=== PATIENT | female | born 1930 | race Caucasian/White ===

== ENCOUNTER 2017-03-28 16:41 | Inpatient (IN) | payer MEDICARE, OTHER ==
--- NOTE | ~2017-03-28 | CN ---
Consultation Report [address] [place]. [address] NAME: TOBY STRANGE : [birth year] STATUS : ADM IN PAT#: [id number] AGE: 87 ADM/REG DATE : 03/28/17 MR#: [id number] REPORT SERV DATE: 03/31/17 DICTATED BY: LENNOX TERESA III DATE: 03/30/17 REPORT STATUS : Draft TRANSCRIBED BY: MODL DATE: 03/30/17 CONSULTATION DATE OF CONSULTATION: 03/30/2017 REASON FOR CONSULTATION: Thrombocytosis. HISTORY OF PRESENT ILLNESS: Ms. Strange is an 87-year-old female with atrial fibrillation, who was on Eliquis, who was admitted with a GI bleed on 03/28/2017. Upon admission, she was noted to have a platelet count of over 800,000. She is unaware of any prior elevated blood counts or other blood count abnormalities. She denies having any history of clotting events or myocardial infarction or CVA. She presently is very comfortable and has not had any further bowel movements since admission. PAST MEDICAL HISTORY: 1. Paroxysmal atrial fibrillation. 2. Hypertension. 3. Hyperlipidemia. 4. Depression with anxiety. 5. Arthritis. 6. Obesity. PAST SURGICAL HISTORY: Hysterectomy. SOCIAL HISTORY: Negative for any tobacco or alcohol or drug abuse. ALLERGIES: NO KNOWN DRUG ALLERGIES. FAMILY HISTORY: Significant for cancer, but there is no clotting history that she is aware of. MEDICATIONS: Her home medication list was reviewed and per the home med list. REVIEW OF SYSTEMS: A comprehensive review of systems was performed and is negative unless noted in the HPI. PHYSICAL EXAMINATION: VITAL SIGNS: Blood pressure is 138/63, temperature 97.6, and pulse is 62. GENERAL: She is a well-developed, overweight female, in no acute distress. EYES: Pupils are round and reactive to light with anicteric sclerae. NECK: Supple with no masses or thyroid enlargement. No JVD. CARDIOVASCULAR: Irregularly irregular with no peripheral edema. LUNGS: Clear to auscultation bilaterally with normal respiratory effort. ABDOMEN: Soft, nondistended, nontender with no hepatosplenomegaly to palpation or Consultation Report [place] [id number] [facility] [place]. [address] NAME: TOBY STRANGE : [birth year] STATUS : ADM IN PAT#: [id number] AGE: 87 ADM/REG DATE : 03/28/17 MR#: [id number] REPORT SERV DATE: 03/31/17 DICTATED BY: LENNOX TERESA III DATE: 03/30/17 REPORT STATUS : Draft TRANSCRIBED BY: PACO DATE: 03/30/17 percussion. SKIN: Warm and dry with good skin turgor. No jaundice. PSYCHIATRIC: She is alert and oriented, comprehends our conversation. Normal judgment and affect. LYMPHATIC: Exam is negative for any cervical, supraclavicular, or axillary lymphadenopathy. LABORATORY DATA: Her CBC since admission were reviewed and did show persistently elevated platelet count and mild leukocytosis. ASSESSMENT AND PLAN: Thrombocytosis with mild leukocytosis. It is possible that she has a chronic myeloproliferative disorder versus reactive blood counts or recurrent illness. We will hold off further hematology workup at this time. We will plan to see her at the end of the month as an outpatient to see if her blood counts have normalized. If she continues to have an elevated platelet count and white blood cell count, we will plan to send a molecular testing at that point. HAKEEM/PACO Lennox Teresa III, M.D. / [id number] CC: Chase Mosher MD
--- NOTE | ~2017-03-28 | IDS ---
Interim Discharge Summary [facility] [address] [place] [place]. [address] NAME: TOBY RENE : [birth year] STATUS : ADM IN [facility]#: [id number] AGE: 87 ADM/REG DATE : 03/28/17 MR#: [id number] REPORT SERV DATE: 04/03/17 DICTATED BY: KAJAL BARNES IV DATE: 04/03/17 REPORT STATUS : Draft TRANSCRIBED BY: MODAnabella DATE: 04/03/17 ADMISSION DATE: 03/28/2017 DISCHARGE DATE: DATE OF THE TRANSFER TO THE ICU: 04/01/2017. DATE OF TRANSFER TO THE FLOOR: 04/03/2017. ADMITTING DIAGNOSES: 1. Postoperative respiratory failure, resolved with the patient extubated on the and clinically doing well on several liters of supplemental oxygen. 2. Iatrogenic sigmoid perforation with closure. 3. Urinary tract infection with continued white blood cells, however, with repeat cultures having no-growth, previously with Klebsiella and Pseudomonas. 4. Acute kidney injury, resolved. 5. Paroxysmal atrial fibrillation without recurrence. 6. Hypertension with re-initiation of some of her medications. 7. Electrolyte abnormalities being corrected. CONSULTANTS: Critical Medicine was the new air quality consultant to assume primary care. After the patient was transferred to the ICU postoperatively, General Surgery had previously seen the patient and continues to follow the patient. PROCEDURES: The patient underwent the primary closure of the sigmoid colon perforation as noted. Prior to the transfer to the ICU, no new procedures were performed. Results of the patient's cardiac MRI demonstrated no atrial lesion. CURRENT MEDICATIONS: The patient is on Bactroban twice a day; Celexa 40 mg daily; Claritin 10 mg daily; Cozaar 50 mg daily; DuoNebs every four hours while awake and q.4 hours as needed; folic acid 1 mg daily; heparin 5000 units q.8 hours; hydrochlorothiazide 12.5 mg daily; Levaquin 750 mg daily, which will be continued for two more days; Mag-Ox 400 mg daily; melatonin 3 mg at bedtime; Norvasc 10 mg at bedtime; Protonix 40 mg IV daily; Toprol- XL 100 mg daily; multivitamin daily. HOSPITAL COURSE: The patient was admitted to the ICU following surgery for primary closure of the iatrogenic sigmoid perforation. The patient remained on the mechanical ventilator, though was easily weaned off the morning of 04/02. She has clinically done well with minimal supplemental oxygen needs. The Levaquin was continued both for the bowel perforation as well as the urinary tract infection, though she would only need two more days. She remained on Flagyl for this as well. Most of her blood pressure medications were held, those are being re-initiated as the blood pressure rises postsurgery. She had electrolyte abnormalities, which were corrected. She had a slight rise in her creatinine, which has improved. Hemoglobin has been stable, and she has not required transfusion. It was felt that she was stable for transfer to the floor with orders provided. We will ask the Hospitalist Service to resume primary responsibility. General Surgery will continue to follow. Interim Discharge Summary [address] [place]. [address] NAME: TOBY RENE : [birth year] STATUS : ADM IN [facility]#: [id number] AGE: 87 ADM/REG DATE : 03/28/17 MR#: [id number] REPORT SERV DATE: 04/03/17 DICTATED BY: KAJAL BARNES IV DATE: 04/03/17 REPORT STATUS : Draft TRANSCRIBED BY: PACO DATE: 04/03/17 BHUMI/PACO Kajal Barnes IV, M.D. / [id number] CC: Chase Alicea MD
--- NOTE | ~2017-03-28 | EGD ---
EGD REPORT [facility] [address] [address] NAME: PAM STRANGE : [birth year] STATUS : ADM IN PAT#: [id number] AGE: 87 ADM/REG DATE : 03/28/17 MR#: [id number] REPORT SERV DATE: 04/02/17 DICTATED BY: LOUISA LONG DATE: 04/02/17 REPORT STATUS : Draft TRANSCRIBED BY: [employer] DATE: 04/02/17 [facility] Patient Name: Pam Strange Date of : 1930 Attending MD: LOUISA LONG, Procedure Date No Time: 04/01/2017 Procedure: Colonoscopy Indications: Rectal bleeding Referring MD: TIFFANI DUNN Medicines: Propofol per Anesthesia Complications: Concern for Perforation given epiploica and mesentery. Procedure: Pre-Anesthesia Assessment: - ASA Grade Assessment: III - A patient with severe systemic disease. After I obtained informed consent, the scope was passed under direct vision. Throughout the procedure, the patient's blood pressure, pulse, and oxygen saturations were monitored continuously. The CF [id number] was introduced through the anus with the intention of advancing to the cecum. The scope was advanced to the sigmoid colon before the procedure was aborted. Medications were given. The colonoscopy was performed with ease. The patient tolerated the procedure poorly as appears to have perforation. Findings: The perianal exam was abnormal. Findings include a skin tag. Colonoscope was advanced with ease to 30cm from the anal verge and the colonic mucosa appeared normal up until it appeared that there was epiploica and mesentery. The colonoscope was immediately withdrawn and air removed as much as possible. Estimated blood loss: none. Impression: - Perianal skin tag found on perianal exam. Recommendation: - Perform a CT scan (computed tomography) of abdomen without contrast and pelvis without contrast STAT- discussed with radiologist on-call. - Consult surgeon for likely perforation- discussed with surgery on-call. - Hospitalized notified. Procedure Code(s): --- Professional --- 91194, 53, Colonoscopy, flexible, proximal to splenic flexure; diagnostic, with or without collection of specimen(s) by brushing or washing, with or without EGD REPORT [place] [address] [facility] [place]. [address] NAME: PAM STRANGE : [birth year] STATUS : ADM IN [facility]#: [id number] AGE: 87 ADM/REG DATE : 03/28/17 MR#: [id number] REPORT SERV DATE: 04/02/17 DICTATED BY: LOUISA LONG DATE: 04/02/17 REPORT STATUS : Draft TRANSCRIBED BY: [employer] DATE: 04/02/17 colon decompression (separate procedure) Diagnosis Code(s): --- Professional --- K64.4, Residual hemorrhoidal skin tags K62.5, Hemorrhage of anus and rectum K91.71, Accidental puncture and laceration of a digestive system organ or structure during a digestive system procedure CPT copyright 2013 [employer]. All rights reserved. The codes documented in this report are preliminary and upon melt supervisor review may be revised to meet current compliance requirements. LOUISA LONG, 04/01/2017 6:09 PM This report has been signed electronically. Number of Addenda: 0 Note Initiated On: 04/01/2017 4:50 PM Scope Withdrawal Time 0 hours 0 minutes 0 seconds [address] [place] [address]
--- NOTE | ~2017-03-28 | PUL ---
[place] [address] [place]. [address] NAME: TOBY RENE : [birth year] STATUS : ADM IN PAT#: [id number] AGE: 87 ADM/REG DATE : 03/28/17 MR#: [id number] REPORT SERV DATE: 03/31/17 DICTATED BY: OPHELIA ARCHIBALD DATE: 03/31/17 REPORT STATUS : Draft TRANSCRIBED BY: MODL DATE: 03/31/17 PULMONARY FUNCTION TEST TEST: Overnight pulse oximetry done on room air. DATA: Total recording time 5 hours 53 minutes, mean pulse 76, mean oxygen saturation 90.6. Time with an oxygen saturation less than 88% is 37 minutes and 52 seconds, 10.7% of the night. INTERPRETATION: This is an abnormal study with nocturnal hypoxia, SpO2 graph is concerning for sleep apnea events at 2300 hours. If there is a clinical concern of sleep apnea, we would recommend having an outpatient polysomnogram. Otherwise, this patient would most likely do well with 2 L nasal cannula oxygen supplementation for nocturnal hypoxia. HFQ/MODL Ophelia Archibald MD / [id number] CC: MD Vick Story MD
--- NOTE | ~2017-03-28 | IDS ---
Interim Discharge Summary [facility] [address] [place]. [address] NAME: TOBY RENE : [birth year] STATUS : ADM IN [facility]#: [id number] AGE: 87 ADM/REG DATE : 03/28/17 MR#: [id number] REPORT SERV DATE: 04/13/17 DICTATED BY: JANIE BOLAÑOS DATE: 04/13/17 REPORT STATUS : Draft TRANSCRIBED BY: MODL DATE: 04/13/17 ADMISSION DATE: 03/28/2017 DISCHARGE DATE: Date of service provided from 04/07/2017 to 04/13/2017. Please refer also to interim discharge summary dictated by Dr. Shepherd on 04/06/2017. CURRENT MEDICAL PROBLEMS: 1. Status post surgery on 04/01/2017 for iatrogenic sigmoid perforation from colonoscopy, status post emergent repair on 04/01/[address] Qamar Chandler. 2. Leukocytosis increasing during this week, improved on intravenous Zosyn. 3. Cough with sputum production. Bronchitis and also volume overload. Lasix periodically given. Picture of volume overload, interstitial edema on the CT of the chest. 4. Significant extensive atelectasis postsurgical, needs to optimize respiratory care and respiratory therapies. 5. Diastolic congestive heart failure. Interstitial edema. IV Lasix with the control of creatinine. Chronic kidney disease. Creatinine stable. 6. History of paroxysmal atrial fibrillation, currently in normal sinus rhythm. Eliquis currently on hold. Eliquis to be restarted possibly in a week if no bleeding any more. 7. On admission was admitted for lower gastrointestinal bleed. Colonoscope was stopped because of perforation, unclear etiology of blood, possible diverticulosis. 8. Anemia of chronic disease, stable hemoglobin and hematocrit. 9. Mild ascending thoracic aneurysm on the CT of the chest, asymptomatic. 10.Question when Eliquis should be restarted. Could be restarted at a lower dose in a week if tolerates. Unclear source of bleeding since colonoscopy was not performed. CONSULTANTS ON THE CASE: Bridge Rigger, Dr. Pierce and Dr. Thakur. Critical care Dr. Alan when the patient was in the ICU. Dr. Shepherd once the patient came to the floor on 04/06/2017, was attending until 04/06/2017. Dr. Qamar Chandler of surgery this week. For the week that I saw the patient, the patient was on the floor. She was complaining of some chest congestion and cough with yellowish sputum production. Although, the chest x-ray did not show any evidence of pneumonia, just atelectasis. She was afebrile. She was on 2 L of nasal cannula and her oxygenation was 97% to 95%. The patient was given periodically intravenous Lasix which was improving her congestion, and her creatinine was checked on a daily basis. Because her creatinine currently was fluctuating in the range of 1.1 to 1.15, there was a concern of increasing leukocytosis for the last three days. For example, on 04/09/2017, the white count was 11.8, on 04/11/2017 was 14.1, and on 04/12/2017 was 16.1. At this point, the white count was discussed with Surgery and there was also a question about her wound draining some fluid, so the CT of the abdomen and CT of the chest both without contrast because of the patient's chronic kidney disease and borderline creatinine, so CTs were done without contrast. CT of the chest showed subsegmental atelectasis on the posterior bilateral upper lobes and multi segment atelectasis, posterior bilateral lung bases with underlying small pleural effusion, diffuse pulmonary interstitial edema pattern which may be cardiogenic or noncardiogenic. Differential diagnosis includes interstitial pneumonitis, upper normal heart size and mild Interim Discharge Summary [address] [address] NAME: TOBY RENE : [birth year] STATUS : ADM IN [facility]#: [id number] AGE: 87 ADM/REG DATE : 03/28/17 MR#: [id number] REPORT SERV DATE: 04/13/17 DICTATED BY: JANIE BOLAÑOS DATE: 04/13/17 REPORT STATUS : Draft TRANSCRIBED BY: MODL DATE: 04/13/17 fusiform aneurysmal change on an ascending thoracic aorta of 3.3 cm, enlargement of pulmonary artery 3.4 cm consistent with evidence of pulmonary hypertension. CT of the abdomen and pelvis without contrast, although examination was limited by the lack of oral and IV contrast, no definitive abscess collection was identified, it showed mild diverticulosis in the sigmoid colon. No significant sigmoid wall thickening or surrounding inflammatory change. No anterior abdominal wall abscess. So, Dr. Chandler does not think that the patient has any intraabdominal pathology. He removed her suyapa and we started the patient on Zosyn since yesterday. Her white count came down to 63882o. I also gave her another dose of intravenous Lasix today and we will check her creatinine tomorrow. She will continue oral Lasix also, but we should check creatinine to make sure her kidney function is not worsening. I think that the patient will need two or three days of Zosyn and then probably she should be discharged to rehab on oral antibiotic and diuretic as well as we will optimize her physical therapy. Regarding the patient's Eliquis which she takes for atrial fibrillation, I told the patient's daughter that it is risk versus benefit. Right now, in the beginning of the week, she had one bloody bowel movement, but then she had two bowel movements, which did not show any evidence of blood. Surgeon recommended probably to restart Eliquis in the week, but we still do not know what was the source of her lower GI bleed, for which she was admitted because colonoscopy could not be finished, because of the perforation. So, we would recommend to restart Eliquis on the lower dose of 2.5 twice a day in a week and under control of hemoglobin, if there is any bleeding, it should be discontinued. This was explained to the patient's daughter and she needs to make a final decision. It is risk versus benefit on the Eliquis and the patient's daughter understand this. My partner, Dr. Victoria will see this patient starting tomorrow morning, and he will check on the white count, and if the patient needs more IV Lasix, we can order it and regarding Eliquis, once again the dose of which should be decreased to 2.5 mg p.o. b.i.d. My partner will see the patient starting tomorrow morning. MG/MODL Janie Bolaños M.D. / [id number] CC: Chase Brush MD
--- NOTE | ~2017-03-28 | HP ---
History And Physical [facility] [address] [place]. [address] NAME: TOBY RENE : [birth year] STATUS : ADM IN [facility]#: [id number] AGE: 87 ADM/REG DATE : 03/28/17 MR#: [id number] REPORT SERV DATE: 03/29/17 DICTATED BY: BRYANNA GUERRA DATE: 03/28/17 REPORT STATUS : Draft TRANSCRIBED BY: MODL DATE: 03/28/17 DATE OF ADMISSION: 03/28/2017 CHIEF COMPLAINT: Red blood per rectum starting today. HISTORY OF PRESENT ILLNESS: This is a very pleasant 87 years old female who has a past medical history significant for paroxysmal atrial fibrillation, history of hypertension, history of hyperlipidemia, obesity, degenerative joint disease, osteoarthritis, chronic kidney disease presenting today to [facility] with complaints of GI bleed starting today. The patient says that for one week or so has been complaining of constipation and she started to take by herself some milk of magnesia. Early this morning, she took milk of magnesia, and after that, she started to have a bowel movement and then she started to have 3 episodes of red blood per rectum as well as abdominal discomfort. It is important to note that the patient did not have any nausea or vomiting. No hematemesis, no melena. She has been scoped more than 10 years ago, but she does not remember the results of her EGD and colonoscopy according to the patient, but no scope recently. She is on Eliquis as well as aspirin that she is taking for her paroxysmal atrial fibrillation. She did not have any presyncopal or syncopal episodes. No chest pain or increasing shortness of breath. No PND or orthopnea. No other complaints. The patient has been evaluated in the emergency room and Hospitalist Service has been asked for admission, further evaluation, and treatment. PAST MEDICAL HISTORY: Significant for paroxysmal atrial fibrillation, history of hypertension, hyperlipidemia, depression with anxiety, degenerative joint disease, osteoarthritis, and obesity. PAST SURGICAL HISTORY: Hysterectomy. SOCIAL HISTORY: Denies tobacco, alcohol, or IV drugs. ALLERGIES: SHE DOES NOT HAVE ANY DRUG ALLERGIES. FAMILY HISTORY: Significant for cancer. MEDICATIONS: Listed as her home medications include Eliquis, aspirin, Lipitor, Celexa, Cartia, Francie, Lasix, Cozaar, mag oxide, Toprol-XL, and sinus pills. REVIEW OF SYSTEMS: A 14-point review of systems has been obtained and pertinent positive has been listed into the history of present illness. Otherwise, negative except those underlying above. PHYSICAL EXAMINATION: VITAL SIGNS: The patient is afebrile. Blood pressure 177/58 with a heart rate 91 lying down, standing blood pressure 141/62, heart rate 89, respiratory rate 20, and saturating 92% on room air. GENERAL: She is a very pleasant, well-developed, well-nourished female, in no acute distress. She is alert and oriented x3. She is nonfocal. She follows all her commands History And Physical [address] [address] NAME: TOBY RENE : [birth year] STATUS : ADM IN [facility]#: [id number] AGE: 87 ADM/REG DATE : 03/28/17 MR#: [id number] REPORT SERV DATE: 03/29/17 DICTATED BY: BRYANNA GUERRA DATE: 03/28/17 REPORT STATUS : Draft TRANSCRIBED BY: PACO DATE: 03/28/17 appropriately. HEENT: Shows pupils equal, round, reactive to light. Extraocular movements intact. No JVD. No lymphadenopathy. No thyromegaly appreciated. CHEST: Eval shows bilateral air entry. Clear anteroposterior. No wheezes, crackles, or rhonchi appreciated. CARDIOVASCULAR: She is regular rate and rhythm. S1, S2 positive. No S3, no S4. No murmurs, rubs, or gallops appreciated. ABDOMEN: Soft, obese, nontender. No guarding. No rebound. EXTREMITIES: No clubbing, cyanosis, or edema. NEUROLOGY: The patient is alert and oriented x3. She is nonfocal. She follows all her commands appropriately. LABORATORY DATA: Labs from today include sodium 137, potassium 4.7, chloride 100, CO2 of 30, BUN 32, creatinine 1.33, glucose 131, total protein 8.7, albumin 4.2, globulin 4.5, total bilirubin 0.4, alkaline phosphatase 127, ALT 36, AST 27. White count 12.9, hemoglobin 14.2, hematocrit 44.2, and platelets 855. INR is 1.3. CT of the abdomen and pelvis without contrast performed in the emergency room shows no acute abdominal or pelvic pathology. Mild diverticulosis, but no diverticulitis, colitis, or proctitis. There is hepatic steatosis and a small cyst on the left kidney. ASSESSMENT: This is a very pleasant 87 years old female with. 1. Lower gastrointestinal bleed. 2. History of paroxysmal atrial fibrillation, on anticoagulation. 3. Hypertension. 4. Hyperlipidemia. 5. Depression. 6. Mild chronic kidney disease. 7. Thrombocytopenia. PLAN: 1. The patient is going to be admitted to Hospitalist Service. Place her on IV fluids, Protonix IV b.i.d. We are going to perform H and H q.6 hours. Check all anemia studies. Hold the aspirin and Eliquis, and consult Dr. Goff, GI, for further recommendation. We are going to keep the patient n.p.o. past midnight pending GI evaluation. 2. History of paroxysmal atrial fibrillation. We are going to hold Eliquis. We are going to check a set of cardiac enzymes. Continue her Cardizem as well as her beta-marshall. 3. History of hypertension. We will continue her home medication. We are going to hold Cozaar currently, provide p.r.n. hydralazine as needed. 4. Mild chronic kidney disease, provide IV hydration, and follow the kidney function tests closely. 5. Hyperlipidemia. We will continue her home medications. 6. Thrombocytopenia, possible reactive. We are going to follow the labs. The patient might need on-call hematology followup as an outpatient. We will provide reasonable pain, nausea control as well as GI and DVT prophylaxis with SCDs. That has been discussed extensively with the patient and family. All the questions have been answered in full. Further workup and recommendation pending above. History And Physical [address] [address] NAME: TOBY RENE : [birth year] STATUS : ADM IN [facility]#: [id number] AGE: 87 ADM/REG DATE : 03/28/17 MR#: [id number] REPORT SERV DATE: 03/29/17 DICTATED BY: BRYANNA GUERRA DATE: 03/28/17 REPORT STATUS : Draft TRANSCRIBED BY: PACO DATE: 03/28/17 It is worthwhile to note that the patient is going to be followed by Hospitalist Service. MILE/PACO Bryanna Guerra M.D. / [id number] CC: MD Vick Saha MD
--- NOTE | ~2017-03-28 | CN ---
Consultation Report [facility] [address] [place]. [address] NAME: TOBY RENE : [birth year] STATUS : ADM IN [facility]#: [id number] AGE: 87 ADM/REG DATE : 03/28/17 MR#: [id number] REPORT SERV DATE: 03/30/17 DICTATED BY: SHERI WIN DATE: 03/29/17 REPORT STATUS : Draft TRANSCRIBED BY: MODAnabella DATE: 03/29/17 CONSULTATION REPORT DATE OF CONSULTATION: 03/29/2017 This consultation is for Dr. Shane Goff and I am covering for him. HISTORY OF PRESENT ILLNESS: The patient is an 87-year-old woman who has a history of atrial fibrillation, currently on Eliquis, presented with bright red blood from the rectum. She says that she has been having some constipation, yesterday took some milk of magnesia and then had some bright red blood, it was not a whole lot, but it did scare enough to come to the emergency room. She has also had some abdominal pains on the left side of the abdomen. She denies any melena. She denies any nausea or vomiting. No hematemesis or coffee-grounds emesis. No pyrosis. No indigestion. No dysphagia. No odynophagia. PAST MEDICAL HISTORY: Her past medical history is pertinent for the atrial fibrillation, hypertension, hyperlipidemia, degenerative joint disease, osteoarthritis, depression and anxiety, and obesity. She is status post a hysterectomy. MEDICATIONS: Her medicines at home are the Eliquis, aspirin, Lipitor, Celexa, diltiazem, Francie, Lasix, Cozaar, magnesium oxide, Toprol-XL, and sinus pill. ALLERGIES: SHE HAS NO KNOWN MEDICAL ALLERGIES. SOCIAL HISTORY: She does not smoke cigarettes and does not drink any alcohol. FAMILY HISTORY: Negative for colon cancer or colon polyps. REVIEW OF SYSTEMS: Otherwise, unremarkable. PHYSICAL EXAMINATION: GENERAL: She is a well-developed, well-nourished woman, in no acute distress. VITAL SIGNS: Her temperature is 96.8, pulse 71, respirations 20, and blood pressure is 171/74. HEENT: Unremarkable. LUNGS: Clear. HEART: Showed regular rate and rhythm. ABDOMEN: Showed normoactive bowel sounds and soft with mild tenderness in the left upper quadrant to left lower quadrant. LABORATORY DATA: On admission showed a sodium of 137, potassium 4.7, chloride 100, CO2 of 30, BUN 32, and creatinine 1.33. Her GFR was 36. Glucose 131, calcium was 9.6, total protein 8.7, albumin is 4.2, total bilirubin 0.4, alkaline phosphatase of 127, ALT 36, and AST 27. Her white count on admission was 12.9, hemoglobin 14.2, and platelet count a Consultation Report [address] [place]. [address] NAME: TOBY RENE : [birth year] STATUS : ADM IN PAT#: [id number] AGE: 87 ADM/REG DATE : 03/28/17 MR#: [id number] REPORT SERV DATE: 03/30/17 DICTATED BY: SHERI WIN DATE: 03/29/17 REPORT STATUS : Draft TRANSCRIBED BY: PACO DATE: 03/29/17 855,000. She had a PTT of 48 and a pro-time of 16.1 with an INR of 1.3. She had a CT scan, which was unremarkable. Currently, her electrolytes are sodium of 137, potassium 4.6, chloride 106, CO2 of 28, BUN 25, and creatinine 1.1. Her glucose is 112. Her GFR is 45. The calcium is 8.6, magnesium 2.5. Iron 73, TIBC 282, and ferritin was 138, all normal. Her hemoglobin is 13.6 with hematocrit of 42.6. IMPRESSION: This is an 87-year-old woman who presented with some bright red blood from the rectum. More than likely, this could be hemorrhoids as she is on Eliquis and the bleeding could be more than would be expected if she was not on blood thinners; however, with the abdominal pains, could also be ischemic colitis, could be diverticulosis, although with diverticulosis, you would expect her bleeding to be more and her hemoglobin and hematocrit to drop as they are currently stable. She did take her last Eliquis yesterday in the morning, so according to the antithrombotic reversal and surgical management recommendations for Eliquis is to hold it for at least 48 hours, maybe even three days for renal insufficiency so that she could have the procedure would be Thursday or Thursday. We will leave the actual timing to Dr. Thakur. JUDY/PACO Sheri Win M.D. / [id number] CC: Chase Garcia MD Camille Sommer, MD
--- NOTE | ~2017-03-28 | DS ---
Discharge Summary [place] [id number] [facility] [place]. [address] NAME: TOBY STRANGE : [birth year] STATUS : DIS IN PAT#: [id number] AGE: 87 ADM/REG DATE : 03/28/17 MR#: [id number] REPORT SERV DATE: 04/15/17 DICTATED BY: NICO ROLLE DATE: 04/14/17 REPORT STATUS : Draft TRANSCRIBED BY: MODL DATE: 04/14/17 ADMISSION DATE: 03/28/2017 DISCHARGE DATE: 04/14/2017 DISCHARGE DIAGNOSES: 1. Iatrogenic sigmoid perforation from colonoscopy with emergent repair on 04/01/[address] Qamar Chandler. 2. Leukocytosis. 3. Cough with sputum production, bronchitis. 4. Atelectasis postop. 5. Diastolic heart failure. 6. History of paroxysmal atrial fibrillation, Eliquis on held to be reassessed in one week, possible restart at half dose pending followup CBC. Family and patient aware. 7. Anemia of chronic disease. 8. Ascending thoracic aneurysm, asymptomatic, mild. CONSULTATIONS: 1. Dr. Pierce and Leonor Thakur MD. 2. Critical care by Dr. Marito Alan. 3. Hospitalist course by Dr. Shepherd and Dr. Obdulia Perez, up until 04/13/2017, seen by this physician on 04/14/2017. DISCHARGE MEDICATIONS: Amlodipine 10 mg one tab p.o. daily; atorvastatin 20 mg one tab p.o. at bedtime; Celexa 40 mg tab p.o. daily; Cardizem 240 mg one tab p.o. daily; folic acid 1 tab 1 mg p.o. daily; Lasix 20 mg one tab p.o. daily. Eliquis to follow up in one week, suggest restart at 2.5 mg p.o. b.i.d. Follow up in facility. Sliding scale insulin level 2. Claritin 10 mg one tab p.o. daily. Mag oxide 400 mg one tab p.o. daily. Melatonin 3 mg one tab p.o. at bedtime. Daily multivitamin; metoprolol 100 mg one tab p.o. XL; Protonix 40 mg one tab p.o. before breakfast; MiraLAX 1 packet p.o. daily; hydralazine 25 mg one tab p.o. q.8 hours; Tylenol over the counter for fever over 101 per coating mixer tender's directions; glucose tablets per hyperglycemia protocol; Chase 5/325 q.6 hours as needed for breakthrough pain; Zofran 4 mg ODT q.4 for nausea vomiting; aspirin 81 mg, also follow up in one week; Michelle connell currently, follow up with PCP. HOSPITAL COURSE: Please see H and P for complete details of HPI and interim summaries and courses as noted by Dr. Shepherd and Dr. Perez written on 04/13/2017. Briefly, Ms. Strange is a very pleasant, female, who was admitted after having emergent surgery for bowel perforation, did have ICU requirements for postop respiratory failure, resolved with extubation on the , did have UTI that was no growth, previously had Klebsiella and Pseudomonas cultures but was able to be transferred out of ICU. The patient also had a lower GI bleed as she was also on Eliquis which is currently on hold, will be reassessed one week from discharge for paroxysmal atrial fibrillation. I anticipate reduced dose. The patient was noted to have thrombocytosis, also evaluated by Hematology Oncology, an echocardiogram with resultant cardiac MRI for questionable arterial mass which was negative on cardiac MRI but was incidentally noted on echocardiogram but not able to be confirmed on cardiac MRI. The patient was noted to have mild hypoxia which improved with IV Lasix and Discharge Summary [address] [address] NAME: TOBY STRANGE : [birth year] STATUS : DIS IN PAT#: [id number] AGE: 87 ADM/REG DATE : 03/28/17 MR#: [id number] REPORT SERV DATE: 04/15/17 DICTATED BY: NICO ROLLE DATE: 04/14/17 REPORT STATUS : Draft TRANSCRIBED BY: MODL DATE: 04/14/17 supplemental O2, was placed on IV antibiotics. However, clinically did not have infectious type pattern and did appear to have more atelectatic type component, was removed from IV antibiotics. The patient did have culture obtained from Dr. Chandler who also did not believe infectious source from abdominal wall, although no significant atelectatic type component and stress demargination for leukocytosis. The patient felt notably improved per family, also felt more comfortable and encouraged the progress. Both the patient and family understood, they had very appropriate questions during hospital stay and very informed about hospital stay and eager for discharge on day of discharge to skilled facility to continue her rehabilitation course. The patient was continued with ICS, to have followup labs in approximately one week with CBC, BMP, and then reassessment with the same for Eliquis restart. All questions answered to patient and family at bedside. DICTATED BY: Nico Rolle MD DDJose Eduardo/MODL Nico Rolle MD / [id number] CC: MD Vick Jenkins MD
--- NOTE | ~2017-03-28 | CN ---
Consultation Report [facility] [address] [place]. [address] NAME: TOBY RENE : [birth year] STATUS : ADM IN [facility]#: [id number] AGE: 87 ADM/REG DATE : 03/28/17 MR#: [id number] REPORT SERV DATE: 04/03/17 DICTATED BY: SHERI ALAN DATE: 04/01/17 REPORT STATUS : Draft TRANSCRIBED BY: MODL DATE: 04/01/17 CONSULTATION TIME IS 2130 HOURS, SEEN IN CCU, PATIENT IS POSTOP. DATE OF CONSULTATION: 04/01/2017 HISTORY OF PRESENT ILLNESS: An 87-year-old white female with history of atrial fibrillation, paroxysmal; hypertension; hyperlipidemia; obesity; DJD; osteoarthritis; and chronic kidney disease. She presents to the hospital with complaints of GI bleeding, starting with some bloody bowel movements. She says she has had constipation for the past week and is taking laxatives. She did have some abdominal discomfort and has had blood per rectum. This led to her coming to the hospital and undergoing colonoscopy where she sustained a perforation, taken to the operating room for ex lap and a repair, still in the ICU. The patient is sedated on mechanical ventilation. PAST MEDICAL HISTORY: Significant for PAF, history of hypertension, hyperlipidemia, history of depression and anxiety, DJD, osteoarthritis, obesity. She is status post hysterectomy. No tobacco, alcohol, or drug use. ALLERGIES: NO KNOWN ALLERGIES. FAMILY HISTORY: Significant for cancer. REVIEW OF SYSTEMS: Otherwise negative, noncontributory, except for as noted above. PHYSICAL EXAMINATION: GENERAL: Currently, on examination, she is orally intubated. Obese female in no acute distress. Vital signs are stable. She is afebrile. HEENT: Head is normocephalic. Sclerae and conjunctivae are clear. CHEST: Bilateral expiratory wheezes. CARDIAC: S1 and S2. No murmurs or gallops. ABDOMEN: Soft, what appears to incision in place. EXTREMITIES: No clubbing, cyanosis, or edema. Pulses are palpable. NEUROLOGIC: Grossly intact. LABORATORY DATA: Blood cultures negative thus far. Her sodium today is 136, potassium 4.3, chloride 103, CO2 of 29, BUN 21, creatinine 1.17, glucose 103, calcium 8.2. CBC shows an H and H of 11.6, 35.9. White count 8800, platelet count 715,000, 76 polys, 1 band. Urine culture, Klebsiella greater than 100,000, sensitive. H and H of of 11.1 and 33.9. Colonoscopy report including skin tag, normal. Splenic flexure, residual hemorrhoidal skin tags. Abnormal CT noted. Chest x-ray shows pending. Consultation Report [place] [address] [place]. [address] NAME: TOBY RENE : [birth year] STATUS : ADM IN PAT#: [id number] AGE: 87 ADM/REG DATE : 03/28/17 MR#: [id number] REPORT SERV DATE: 04/03/17 DICTATED BY: SHERI ALAN DATE: 04/01/17 REPORT STATUS : Draft TRANSCRIBED BY: PACO DATE: 04/01/17 IMPRESSION: 1. Postop for perforation of bowel. 2. Status post exploratory laparoscopy. 3. History of paroxysmal atrial fibrillation. 4. History of hypertension, hyperlipidemia, and depression. Home meds are listed as noted including Eliquis, aspirin, Lipitor, Celexa, Cartia, Francie, Lasix, Cozaar, Mag Ox, Toprol-XL, . REVIEW OF SYSTEMS: Otherwise negative and noncontributory. Currently, the patient is orally intubated, stays on mechanical ventilation. 135/94, pulse 62 and regular, afebrile, sat 90%. HEENT: Head is normocephalic. Orally intubated. NECK: Large. No thyromegaly. CHEST: Bilateral expiratory wheezes. CARDIAC: S1 and S2. No murmurs or gallops. ABDOMEN: Soft, nontender. Dressing seen. Decreased bowel sounds. EXTREMITIES: No clubbing, cyanosis, or edema. Pulses palpable. NEUROLOGIC: She is sedated. Recovered per anesthesia. Laboratory studies are as noted. PLAN: Status post perforation. Continue to observe. Continue surgical orders. She is currently on Levaquin and Flagyl. Monitor ventilator, attempt to wean in the morning. DENISE/PACO Sheri Alan M.D. / [id number] CC: Vaughn Shepherd MD
--- NOTE | ~2017-03-28 | EGD ---
EGD REPORT [facility] [address] [address] NAME: PAM STRANGE : [birth year] STATUS : ADM IN PAT#: [id number] AGE: 87 ADM/REG DATE : 03/28/17 MR#: [id number] REPORT SERV DATE: 04/01/17 DICTATED BY: LOUISA LONG DATE: 04/01/17 REPORT STATUS : Draft TRANSCRIBED BY: [employer] DATE: 04/01/17 Endoscopy Center Patient Name: Pam Strange Date of : 1930 Attending MD: LOUISA LONG, Procedure Date No Time: 04/01/2017 Procedure: Colonoscopy Indications: Rectal bleeding Referring MD: TIFFANI DUNN Medicines: Propofol per Anesthesia Complications: Concern for Perforation given epiploica and mesentery. Procedure: Pre-Anesthesia Assessment: - ASA Grade Assessment: III - A patient with severe systemic disease. After I obtained informed consent, the scope was passed under direct vision. Throughout the procedure, the patient's blood pressure, pulse, and oxygen saturations were monitored continuously. The CF [id number] was introduced through the anus with the intention of advancing to the cecum. The scope was advanced to the sigmoid colon before the procedure was aborted. Medications were given. The colonoscopy was performed with ease. The patient tolerated the procedure poorly as appears to have perforation. Findings: The perianal exam was abnormal. Findings include a skin tag. Colonoscope was advanced with ease to 30cm from the anal verge and the colonic mucosa appeared normal up until it appeared that there was epiploica and mesentery. The colonoscope was immediately withdrawn and air removed as much as possible. Estimated blood loss: none. Impression: - Perianal skin tag found on perianal exam. Recommendation: - Perform a CT scan (computed tomography) of abdomen without contrast and pelvis without contrast STAT- discussed with radiologist on-call. - Consult surgeon for likely perforation- discussed with surgery on-call. - Hospitalized notified. Procedure Code(s): --- Professional --- 33610, 53, Colonoscopy, flexible, proximal to splenic flexure; diagnostic, with or without collection of specimen(s) by brushing or washing, with or without EGD REPORT [place] [address] [facility] [place]. [address] NAME: PAM STRANGE : [birth year] STATUS : ADM IN [facility]#: [id number] AGE: 87 ADM/REG DATE : 03/28/17 MR#: [id number] REPORT SERV DATE: 04/01/17 DICTATED BY: LOUISA LONG DATE: 04/01/17 REPORT STATUS : Draft TRANSCRIBED BY: [employer] DATE: 04/01/17 colon decompression (separate procedure) Diagnosis Code(s): --- Professional --- K64.4, Residual hemorrhoidal skin tags K62.5, Hemorrhage of anus and rectum K91.71, Accidental puncture and laceration of a digestive system organ or structure during a digestive system procedure CPT copyright 2013 [employer] [place] [employer]. All rights reserved. The codes documented in this report are preliminary and upon termination clerk review may be revised to meet current compliance requirements. LOUISA LONG, 04/01/2017 6:09 PM This report has been signed electronically. Number of Addenda: 0 Note Initiated On: 04/01/2017 4:50 PM Scope Withdrawal Time 0 hours 0 minutes 0 seconds [address] [place] [address]
--- NOTE | ~2017-03-28 | OP ---
Record Of Operation [facility] [address] [place]. [address] NAME: TOBY RENE : [birth year] STATUS : ADM IN [facility]#: [id number] AGE: 87 ADM/REG DATE : 03/28/17 MR#: [id number] REPORT SERV DATE: 04/02/17 DICTATED BY: THOM GALEAS DATE: 04/01/17 REPORT STATUS : Draft TRANSCRIBED BY: MODL DATE: 04/01/17 DATE OF PROCEDURE: 04/01/2017 PREOPERATIVE DIAGNOSIS: Perforated colon. POSTOPERATIVE DIAGNOSIS: Perforated colon. PROCEDURE PERFORMED: 1. Exploratory laparotomy. 2. Primary of sigmoid colotomy. SURGEON: Dr. Thom Galeas. FELLOW: Dr. Vivek James. ANESTHESIA: General endotracheal tube anesthesia. IV FLUIDS: 1200. ESTIMATED BLOOD LOSS: 5 mL. SPECIMENS AND CULTURES: None. DRAINS: None. COMPLICATIONS: None. SURGICAL FINDINGS: A 1 cm defect in the antimesenteric wall of the mid sigmoid colon. This was repaired primarily in 2 layers. INDICATIONS FOR PROCEDURE: This is an 87-year-old female, who presented with rectal bleeding, underwent colonoscopy today. Unfortunately, she presented with perforation post colonoscopy and surgical consultation was sought. She was offered exploratory laparotomy repair and possible resection of the defect. Risks, benefits, and alternatives were explained to the patient, who understood these and consented to undergo surgical intervention. DESCRIPTION OF PROCEDURE: The patient was brought to the operating room, placed in the supine position where general anesthetic was induced. Central line and arterial line were in place. Preprocedure antibiotics were administered. SCDs were placed and turned on. Acosta catheter was placed sterilely. Preprocedure time-out was called and agreed upon. She was secured to the bed with arms out. The patient's abdomen was prepped and draped sterilely. Scalpel was used to make an infraumbilical midline incision from the umbilicus to just above the pubic symphysis. Electrocautery was used to dissect down to the fascia, which was grasped between two clamps and divided sharply with Metzenbaum scissors. Entry to the abdomen revealed large amount of air, which was suctioned away. The remainder of the Record Of Operation [facility] [address] [place]. [address] NAME: TOBY RENE : [birth year] STATUS : ADM IN PAT#: [id number] AGE: 87 ADM/REG DATE : 03/28/17 MR#: [id number] REPORT SERV DATE: 04/02/17 DICTATED BY: THOM GALEAS DATE: 04/01/17 REPORT STATUS : Draft TRANSCRIBED BY: MODL DATE: 04/01/17 fascia was opened using electrocautery along the linea alba and through the midline muscle defect inferiorly. On initial entry of the abdomen, there was no contamination identified and routine section in all four quadrants yielded very little fluid or particular matter. There was no stool or blood. We then elevated the sigmoid colon and looked along its length and roughly at the mid sigmoid colon, there was a 1 cm defect of the mucosa on the antimesenteric side of the colon wall. This was closed primarily in two layers using a 3-0 Vicryl running to reapproximate mucosa and 3-0 silks interrupted to cover. There was a small epiploic appendage, which was secured into place over the repair as well. We then irrigated the patient's abdomen with 3-4 L of sterile saline. The patient tolerated the procedure well. The midline fascia was closed using 5-0 Vicryl internal retention sutures as well as #1 PDS suture. The posterior sheath prior to that had been closed with an 0 Vicryl. Skin was reapproximated using a skin stapler. The patient was transferred to the CCU for ongoing critical care. Dr. Thom Galeas was present for the duration of the procedure. DICTATED BY: Vivek James MD [facility]/PACO Thom Galeas M.D. / [id number] CC: Vaughn Shepherd MD
--- NOTE | ~2017-03-28 | IDS ---
Interim Discharge Summary [facility] [address] [place]. [address] NAME: TOBY RENE : [birth year] STATUS : ADM IN [facility]#: [id number] AGE: 87 ADM/REG DATE : 03/28/17 MR#: [id number] REPORT SERV DATE: 04/06/17 DICTATED BY: VAUGHN SMITH DATE: 04/06/17 REPORT STATUS : Draft TRANSCRIBED BY: MODL DATE: 04/06/17 ADMISSION DATE: 03/28/2017 DISCHARGE DATE: WORKING DIAGNOSES: 1. Iatrogenic sigmoid perforation from a colonoscopy, status post emergent repair, postop day #5. 2. Postoperative respiratory failure, on 3 L of oxygen currently. 3. Initial admission for lower gastrointestinal bleed, the patient's hemoglobin has been stable. 4. Paroxysmal atrial fibrillation for which patient has been on Eliquis. 5. Anxiety. 6. Hypertension. 7. Thrombocytosis. 8. Chronic kidney disease. 9. Nocturnal hypoxia. 10.Urinary tract infection, repeat urine cultures are negative, but the patient has grown Klebsiella and Pseudomonas from earlier cultures. 11.The patient had an echocardiogram concerning for possible atrial mass. Cardiac MRI ruled out cardiac mass and the patient actually had very good viable myocardium, and overall excellent heart function. CONSULTANTS: 1. GI. 2. General Surgery. 3. Critical care for her time in the ICU. 4. Heme-Onc. PROCEDURES: 1. Colonoscopy performed on 04/01/2017 that resulted in iatrogenic sigmoid bowel perforation. 2. Emergent ex-lap with repair of the perforation by Dr. Chandler on 04/01/2017. HOSPITAL COURSE: This is an 87-year-old lady who was initially admitted to the hospital with lower GI bleed in the setting of anticoagulation with Eliquis. For details, please refer to excellent H and P dictated by Dr. Bryanna Delvalle. In summary, the patient underwent a colonoscopy on 04/01/2017, and unfortunately, the patient suffered from iatrogenic bowel perforation. The patient underwent emergent ex-lap and stayed in the ICU postop. For details, please refer to interim discharge summary dictated by Dr. Barnes. I resumed care of this patient after she came out of the ICU. The patient has remained quite stable since then. The patient does have history of paroxysmal atrial fibrillation, and her heart rate was suboptimally controlled with NG tube in; however, patient's heart rate is improving with her home p.o. medications since the NG tube has been discontinued. Earlier during the hospital stay, the patient was evaluated for thrombocytosis by Heme-Onc, and there was no indication for treatment for now. Heme-Onc will simply follow patient as Interim Discharge Summary [place] [address] [place]. [address] NAME: TOBY RENE : [birth year] STATUS : ADM IN PAT#: [id number] AGE: 87 ADM/REG DATE : 03/28/17 MR#: [id number] REPORT SERV DATE: 04/06/17 DICTATED BY: VAUGHN SMITH DATE: 04/06/17 REPORT STATUS : Draft TRANSCRIBED BY: MODL DATE: 04/06/17 an outpatient. Also during earlier in the hospital stay, patient had an echocardiogram that showed a possible atrial mass, the patient thus had a cardiac MRI which was within normal limits and it did not show any cardiac mass. Also during earlier part of the hospital stay, the patient was evaluated for nocturnal hypoxia, and she did test positive, and she is recommended to have oxygen 2 L nightly. The patient was seen by Physical therapy who recommended rehab at discharge. Currently, the patient is moving in the right direction. The patient will need to be cleared by surgery prior to discharge. The patient is passing gas but has not had any bowel movements yet. The patient has been tolerating clear liquid diet thus far. YSC/PACO Vaughn Smith MD / [id number] CC: MD Vick Story MD
[2017-03-28 17:05] LABS: BASOPHILS 0.5 %; BASOPHILS ABSOLUTE 0.06 10/3/uL (0.0-0.16); EOSINOPHILS 1.4 %; EOSINOPHILS ABSOLUTE 0.18 10/3/uL (0.0-0.53); HEMATOCRIT 44.2 % (36.0-48.0); HEMOGLOBIN 14.2 g/dL (12.0-16.0); IMMATURE GRANULOCYTES 0.5 %; IMMATURE GRANULOCYTES ABSOLUTE 0.07 10/3/uL (0.0-0.11); LYMPHOCYTES 25.7 %; LYMPHOCYTES ABSOLUTE 3.32 10/3/uL (0.67-4.30); MEAN CORPUS HGB CONC 32.1 g/dL (32.0-36.0); MEAN CORPUSCULAR HEMOGLOB 29.3 pg (26.0-34.0); MEAN CORPUSCULAR VOLUME 91.3 fL (80-100); MEAN PLATELET VOLUME 9.5 fL (9.2-13.0); MONOCYTES 7.3 %; MONOCYTES ABSOLUTE 0.94 10/3/uL (0.21-1.20); NEUTROPHILS 64.6 %; NEUTROPHILS ABSOLUTE 8.33 10/3/uL (2.02-8.40); RBC DISTRIBUTION WIDTH 15.3 % (12.0-16.0); RED CELL COUNT 4.84 10/6/uL (4.0-5.6); WHITE BLOOD CELLS 12.9 10/3/uL (4.5-10.5)
[2017-03-28 17:06] LABS: PLATELET COUNT 855 10/3/uL (150-400)
[2017-03-28 17:10] LABS: MANUAL DIFF NO %
[2017-03-28 17:17] LABS: INTERNATIONAL NORMAL RATI 1.3 UNITS (-); PROTIME (NOT ORD) 16.1 SEC (12.0-14.5)
[2017-03-28 17:21] LABS: A/G RATIO 0.9 (0.7-1.9); ALBUMIN 4.2 G/DL (3.5-5.0); ALKALINE PHOSPHATASE 127 U/L (45-117); BUN (BLOOD UREA NITROGEN) 32 MG/DL (6-23); CALCIUM, SERUM 9.6 MG/DL (8.5-10.4); CHLORIDE, SERUM 100 MMOL/L (96-112); CO2 (CARBON DIOXIDE) 30 MMOL/L (24-34); CREATININE 1.33 MG/DL (0.55-1.02); GFR AFRICAN AMERICAN 41 ML/MIN (>=60); GFR NON AFRICAN AMERICAN 36 ML/MIN (>=60); GLOBULIN 4.5 G/DL (2.5-4.1); GLUCOSE, SERUM 131 MG/DL (60-99); POTASSIUM, SERUM 4.7 MMOL/L (3.5-5.3); SGOT(AST) 27 U/L (5-40); SGPT(ALT) 36 U/L (5-65); SODIUM, SERUM 137 MMOL/L (135-148); TOTAL BILIRUBIN 0.4 MG/DL (0-1.2); TOTAL PROTEIN 8.7 G/DL (6.0-8.5)
[2017-03-28 17:52] LABS: RBC MORPHOLOGY NORM (NORMAL)
[2017-03-28] MEDS ORDERED: CELEXA20 PO (18:59)
[2017-03-28] MEDS ORDERED: MAG OXIDE250 MG PO (18:59)
[2017-03-28] MEDS ORDERED: ASAB PO (18:59)
[2017-03-28] MEDS ORDERED: COZAAR100 MG PO (18:59)
[2017-03-28] MEDS ORDERED: TOPXL100 PO (19:00)
[2017-03-28] MEDS ORDERED: LIPITOR20 PO (19:03)
[2017-03-28] MEDS ORDERED: CARTIA XT120 MG/24 PO (19:03)
[2017-03-28] MEDS ORDERED: ELIQUIS 5 MG TAB5 MG PO (19:04)
[2017-03-28] MEDS ORDERED: ALLEGRA180 PO (19:04)
[2017-03-28] MEDS ORDERED: L40 PO (19:04)
[2017-03-28] MEDS ORDERED: [UNRECOGNIZED DRUG - REMARK] PO (19:05)
[2017-03-29 00:10] LABS: BASOPHILS 0.5 %; BASOPHILS ABSOLUTE 0.06 10/3/uL (0.0-0.16); EOSINOPHILS 1.1 %; EOSINOPHILS ABSOLUTE 0.13 10/3/uL (0.0-0.53); HEMATOCRIT 39.9 % (36.0-48.0); HEMOGLOBIN 12.8 g/dL (12.0-16.0); IMMATURE GRANULOCYTES 0.5 %; IMMATURE GRANULOCYTES ABSOLUTE 0.06 10/3/uL (0.0-0.11); LYMPHOCYTES 20.6 %; LYMPHOCYTES ABSOLUTE 2.42 10/3/uL (0.67-4.30); MEAN CORPUS HGB CONC 32.1 g/dL (32.0-36.0); MEAN CORPUSCULAR HEMOGLOB 29.1 pg (26.0-34.0); MEAN CORPUSCULAR VOLUME 90.7 fL (80-100); MEAN PLATELET VOLUME 9.4 fL (9.2-13.0); MONOCYTES 6.3 %; MONOCYTES ABSOLUTE 0.74 10/3/uL (0.21-1.20); NEUTROPHILS ABSOLUTE 8.32 10/3/uL (2.02-8.40); RBC DISTRIBUTION WIDTH 15.4 % (12.0-16.0); WHITE BLOOD CELLS 11.7 10/3/uL (4.5-10.5)
[2017-03-29 00:11] LABS: MANUAL DIFF NO %; PLATELET COUNT 712 10/3/uL (150-400)
[2017-03-29 00:46] LABS: FREE T4 0.97 NG/DL (0.76-1.46); PHOSPHORUS, SERUM 2.9 MG/DL (2.5-4.5); TROPONIN I 0.03 NG/ML (<0.05); ULTRASENSITIVE TSH 3.19 MCIU/ML (0.358-3.740)
[2017-03-29 00:47] LABS: FOLATE 19.4 NG/ML (>5.2)
[2017-03-29 05:51] LABS: INTERNATIONAL NORMAL RATI 1.3 UNITS (-); PROTIME (NOT ORD) 16.5 SEC (12.0-14.5)
[2017-03-29 05:56] LABS: CHLORIDE, SERUM 106 MMOL/L (96-112); CO2 (CARBON DIOXIDE) 28 MMOL/L (24-34); GFR AFRICAN AMERICAN 52 ML/MIN (>=60); GFR NON AFRICAN AMERICAN 45 ML/MIN (>=60); GLUCOSE, SERUM 112 MG/DL (60-99); POTASSIUM, SERUM 4.6 MMOL/L (3.5-5.3); SODIUM, SERUM 137 MMOL/L (135-148)
[2017-03-29 05:57] LABS: BUN (BLOOD UREA NITROGEN) 25 MG/DL (6-23); CALCIUM, SERUM 8.6 MG/DL (8.5-10.4)
[2017-03-29 05:58] LABS: BASOPHILS 0.3 %; BASOPHILS ABSOLUTE 0.03 10/3/uL (0.0-0.16); EOSINOPHILS 1.4 %; EOSINOPHILS ABSOLUTE 0.13 10/3/uL (0.0-0.53); HEMATOCRIT 38.2 % (36.0-48.0); HEMOGLOBIN 12.1 g/dL (12.0-16.0); IMMATURE GRANULOCYTES 0.4 %; IMMATURE GRANULOCYTES ABSOLUTE 0.04 10/3/uL (0.0-0.11); LYMPHOCYTES 23.5 %; LYMPHOCYTES ABSOLUTE 2.23 10/3/uL (0.67-4.30); MEAN CORPUS HGB CONC 31.7 g/dL (32.0-36.0); MEAN CORPUSCULAR HEMOGLOB 28.9 pg (26.0-34.0); MEAN CORPUSCULAR VOLUME 91.2 fL (80-100); MEAN PLATELET VOLUME 9.4 fL (9.2-13.0); MONOCYTES ABSOLUTE 0.76 10/3/uL (0.21-1.20); NEUTROPHILS 66.4 %; NEUTROPHILS ABSOLUTE 6.31 10/3/uL (2.02-8.40); PLATELET COUNT 681 10/3/uL (150-400); RBC DISTRIBUTION WIDTH 15.4 % (12.0-16.0); RED CELL COUNT 4.19 10/6/uL (4.0-5.6); WHITE BLOOD CELLS 9.5 10/3/uL (4.5-10.5)
[2017-03-29 06:02] LABS: MANUAL DIFF NO %
[2017-03-29 07:23] LABS: GLYCOHEMOGLOBIN (HbA1c) 6.3 % (4.7-6.1)
[2017-03-29 08:06] LABS: ASCORBIC ACID (UR NOT ORDER) NEG (NEG); BILIRUBIN, URINE NEGATIVE (NEG); KETONE, URINE NEGATIVE (NEG); LEUKOCYTE ESTERASE(NOT OR MOD (NEG); WBC (NOT ORDERED) (RFLEX) 47 (0-5)
[2017-03-29] MEDS ORDERED: CLARIT10 PO (10:54)
[2017-03-29 11:20] LABS: HEMATOCRIT 40.3 % (36.0-48.0); HEMOGLOBIN 12.8 g/dL (12.0-16.0)
[2017-03-29 13:52] LABS: FERRITIN 138 NG/ML (8-252); IRON BINDING CAPACITY 282 MCG/DL (225-410); IRON, SERUM 73 MCG/DL (35-150)
[2017-03-29 17:18] LABS: HEMATOCRIT 42.6 % (36.0-48.0); HEMOGLOBIN 13.6 g/dL (12.0-16.0)
[2017-03-29 17:58] LABS: T PROTEIN (ELECT)(NOT OR 7.5 G/DL (6.0-8.5)
[2017-03-29 22:34] LABS: HEMOGLOBIN 14.1 g/dL (12.0-16.0)
[2017-03-30 04:37] LABS: BASOPHILS 0.5 %; BASOPHILS ABSOLUTE 0.05 10/3/uL (0.0-0.16); EOSINOPHILS 1.2 %; EOSINOPHILS ABSOLUTE 0.13 10/3/uL (0.0-0.53); HEMATOCRIT 40.9 % (36.0-48.0); HEMOGLOBIN 13.2 g/dL (12.0-16.0); IMMATURE GRANULOCYTES 0.5 %; IMMATURE GRANULOCYTES ABSOLUTE 0.05 10/3/uL (0.0-0.11); LYMPHOCYTES ABSOLUTE 1.97 10/3/uL (0.67-4.30); MEAN CORPUS HGB CONC 32.3 g/dL (32.0-36.0); MEAN CORPUSCULAR HEMOGLOB 29.5 pg (26.0-34.0); MEAN CORPUSCULAR VOLUME 91.3 fL (80-100); MEAN PLATELET VOLUME 9.6 fL (9.2-13.0); MONOCYTES ABSOLUTE 0.66 10/3/uL (0.21-1.20); NEUTROPHILS 73.8 %; NEUTROPHILS ABSOLUTE 8.06 10/3/uL (2.02-8.40); RBC DISTRIBUTION WIDTH 15.4 % (12.0-16.0); RED CELL COUNT 4.48 10/6/uL (4.0-5.6); WHITE BLOOD CELLS 10.9 10/3/uL (4.5-10.5)
[2017-03-30 04:39] LABS: PLATELET COUNT 730 10/3/uL (150-400)
[2017-03-30 04:41] LABS: MANUAL DIFF NO %
[2017-03-30 04:45] LABS: BUN (BLOOD UREA NITROGEN) 18 MG/DL (6-23); CALCIUM, SERUM 8.5 MG/DL (8.5-10.4); CHLORIDE, SERUM 104 MMOL/L (96-112); CO2 (CARBON DIOXIDE) 28 MMOL/L (24-34); CREATININE 1.26 MG/DL (0.55-1.02); GFR AFRICAN AMERICAN 44 ML/MIN (>=60); GFR NON AFRICAN AMERICAN 38 ML/MIN (>=60); GLUCOSE, SERUM 126 MG/DL (60-99); INTERNATIONAL NORMAL RATI 1.2 UNITS (-); POTASSIUM, SERUM 4.6 MMOL/L (3.5-5.3); PROTIME (NOT ORD) 14.7 SEC (12.0-14.5); SODIUM, SERUM 136 MMOL/L (135-148)
[2017-03-30 11:42] LABS: A/G 1.23 RATIO (0.9-2.10); ALB RELATIVE % 55.2 % (60.0-89.0); ALBUMIN (ELECTRO) 4.14 GM/DL (3.2-5.5); ALPHA 1 (ELECTRO) 0.23 GM/DL (0.1-0.4); ALPHA 1 RELAT % (NOT ORD) 3.1 % (1.0-4.0); ALPHA 2 (ELECTRO) 1.02 GM/DL (0.5-1.10); ALPHA 2 RELAT % 13.6 % (4.5-26.0); BETA GLOBULIN (SPE) 0.85 GM/DL (0.60-1.30); BETA RELATIVE % 11.3 % (9.0-22.0); GAMMA GLOBULIN (SPE) 1.26 G/DL (0.70-1.60); GAMMA RELAT % 16.8 % (6.0-22.0)
[2017-03-30 20:07] LABS: HEMATOCRIT 38.8 % (36.0-48.0); HEMOGLOBIN 12.6 g/dL (12.0-16.0)
[2017-03-31 02:34] LABS: BASOPHILS 0.5 %; BASOPHILS ABSOLUTE 0.04 10/3/uL (0.0-0.16); EOSINOPHILS 1.5 %; EOSINOPHILS ABSOLUTE 0.13 10/3/uL (0.0-0.53); HEMOGLOBIN 12.8 g/dL (12.0-16.0); IMMATURE GRANULOCYTES 0.6 %; IMMATURE GRANULOCYTES ABSOLUTE 0.05 10/3/uL (0.0-0.11); LYMPHOCYTES 12.1 %; LYMPHOCYTES ABSOLUTE 1.07 10/3/uL (0.67-4.30); MEAN CORPUS HGB CONC 32.8 g/dL (32.0-36.0); MEAN CORPUSCULAR HEMOGLOB 29.8 pg (26.0-34.0); MEAN CORPUSCULAR VOLUME 90.9 fL (80-100); MEAN PLATELET VOLUME 9.4 fL (9.2-13.0); NEUTROPHILS 76.3 %; NEUTROPHILS ABSOLUTE 6.75 10/3/uL (2.02-8.40); RBC DISTRIBUTION WIDTH 15.4 % (12.0-16.0); RED CELL COUNT 4.29 10/6/uL (4.0-5.6); WHITE BLOOD CELLS 8.8 10/3/uL (4.5-10.5)
[2017-03-31 02:35] LABS: MANUAL DIFF NO %; PLATELET COUNT 710 10/3/uL (150-400)
[2017-03-31 02:41] LABS: INTERNATIONAL NORMAL RATI 1.2 UNITS (-); PROTIME (NOT ORD) 14.8 SEC (12.0-14.5)
[2017-03-31 02:47] LABS: BUN (BLOOD UREA NITROGEN) 21 MG/DL (6-23); CALCIUM, SERUM 8.5 MG/DL (8.5-10.4); CHLORIDE, SERUM 102 MMOL/L (96-112); CO2 (CARBON DIOXIDE) 28 MMOL/L (24-34); CREATININE 1.19 MG/DL (0.55-1.02); GFR AFRICAN AMERICAN 47 ML/MIN (>=60); GFR NON AFRICAN AMERICAN 41 ML/MIN (>=60); GLUCOSE, SERUM 135 MG/DL (60-99); POTASSIUM, SERUM 4.1 MMOL/L (3.5-5.3); SODIUM, SERUM 135 MMOL/L (135-148)
[2017-03-31 08:28] LABS: HEMATOCRIT 40.1 % (36.0-48.0); HEMOGLOBIN 13.1 g/dL (12.0-16.0)
[2017-03-31 14:37] LABS: HEMOGLOBIN 14.6 g/dL (12.0-16.0)
[2017-03-31 14:39] LABS: HEMATOCRIT 44.9 % (36.0-48.0)
[2017-03-31 21:21] LABS: HEMATOCRIT 38.5 % (36.0-48.0); HEMOGLOBIN 12.7 g/dL (12.0-16.0)
[2017-04-01 02:17] LABS: HEMATOCRIT 35.9 % (36.0-48.0); HEMOGLOBIN 11.6 g/dL (12.0-16.0); MEAN CORPUS HGB CONC 32.3 g/dL (32.0-36.0); MEAN CORPUSCULAR HEMOGLOB 29.1 pg (26.0-34.0); MEAN PLATELET VOLUME 9.9 fL (9.2-13.0); NUCLEATED RED BLOOD CELLS 7.2 /100WBC (0-0); RBC DISTRIBUTION WIDTH 15.6 % (12.0-16.0); RED CELL COUNT 3.99 10/6/uL (4.0-5.6); WHITE BLOOD CELLS 8.3 10/3/uL (4.5-10.5)
[2017-04-01 02:22] LABS: PLATELET COUNT 715 10/3/uL (150-400)
[2017-04-01 02:23] LABS: MANUAL DIFF YES %
[2017-04-01 02:26] LABS: BUN (BLOOD UREA NITROGEN) 21 MG/DL (6-23); CALCIUM, SERUM 8.2 MG/DL (8.5-10.4); CHLORIDE, SERUM 103 MMOL/L (96-112); CO2 (CARBON DIOXIDE) 29 MMOL/L (24-34); CREATININE 1.17 MG/DL (0.55-1.02); GFR AFRICAN AMERICAN 48 ML/MIN (>=60); GFR NON AFRICAN AMERICAN 42 ML/MIN (>=60); SODIUM, SERUM 136 MMOL/L (135-148)
[2017-04-01 02:39] LABS: GLUCOSE, SERUM 103 MG/DL (60-99); POTASSIUM, SERUM 4.3 MMOL/L (3.5-5.3)
[2017-04-01 02:46] LABS: BAND NEUTROPHILS 1 %; EOSINOPHILS 3 %; EOSINOPHILS ABSOLUTE (CALC) 0.25 10/3/uL (0.0-0.53); LYMPHOCYTES 15 %; LYMPHOCYTES ABSOLUTE (CALC) 1.25 10/3/uL (0.67-4.30); MONOCYTES 5 %; MONOCYTES ABSOLUTE (CALC) 0.42 10/3/uL (0.21-1.20); NEUTROPHILS ABSOLUTE (CALC) 6.39 10/3/uL (2.02-8.40); RBC MORPHOLOGY NORM (NORMAL); SEGMENTED NEUTROPHIL (0) 76 %; TOTAL NUCLEATED CELLS 100
[2017-04-01 09:02] LABS: HEMATOCRIT 38.9 % (36.0-48.0); HEMOGLOBIN 12.5 g/dL (12.0-16.0)
[2017-04-01 15:08] LABS: HEMATOCRIT 41.1 % (36.0-48.0); HEMOGLOBIN 13.1 g/dL (12.0-16.0)
[2017-04-01 22:59] LABS: BE (BASE EXCESS) -1.7 MEQ/L (0 +/- 2.5); CARBOXYHEMOGLOBIN 0.1 % (0-3); HCO3 (ACTUAL BICARBONATE) 24.3 MEQ/L (23-27); HEMOBLOGIN CONTENT 13.1 G/DL (12-16); INSTRUMENT SERIAL # 35151; METHEMOGLOBIN 0.5 % (0-3); MODE CMV; O2 CONTENT 17.7 VOL% (18-24); OPERATOR ID 13861; PCO2 (CO2 TENSION) 46 MMHG (35-45); PO2 (O2 TENSION) 89 MMHG (79-93); SAMPLE Arterial; TIDAL VOLUME 500 ML; pH 7.34 (7.37-7.43)
[2017-04-02 00:50] LABS: HEMOGLOBIN 10.8 g/dL (12.0-16.0)
[2017-04-02 00:54] LABS: HEMATOCRIT 33.9 % (36.0-48.0)
[2017-04-02 02:40] LABS: BASOPHILS 0.1 %; BASOPHILS ABSOLUTE 0.01 10/3/uL (0.0-0.16); EOSINOPHILS 0.2 %; EOSINOPHILS ABSOLUTE 0.03 10/3/uL (0.0-0.53); HEMATOCRIT 37.2 % (36.0-48.0); IMMATURE GRANULOCYTES 0.3 %; IMMATURE GRANULOCYTES ABSOLUTE 0.05 10/3/uL (0.0-0.11); LYMPHOCYTES 3.4 %; LYMPHOCYTES ABSOLUTE 0.56 10/3/uL (0.67-4.30); MANUAL DIFF NO %; MEAN CORPUS HGB CONC 32.3 g/dL (32.0-36.0); MEAN CORPUSCULAR HEMOGLOB 29.4 pg (26.0-34.0); MEAN CORPUSCULAR VOLUME 91.2 fL (80-100); MEAN PLATELET VOLUME 9.6 fL (9.2-13.0); MONOCYTES 4.8 %; MONOCYTES ABSOLUTE 0.79 10/3/uL (0.21-1.20); NEUTROPHILS 91.2 %; NEUTROPHILS ABSOLUTE 15.02 10/3/uL (2.02-8.40); PLATELET COUNT 700 10/3/uL (150-400); RBC DISTRIBUTION WIDTH 15.3 % (12.0-16.0); RED CELL COUNT 4.08 10/6/uL (4.0-5.6); WHITE BLOOD CELLS 16.5 10/3/uL (4.5-10.5)
[2017-04-02 02:53] LABS: BUN (BLOOD UREA NITROGEN) 18 MG/DL (6-23); CALCIUM, SERUM 8.5 MG/DL (8.5-10.4); CHLORIDE, SERUM 103 MMOL/L (96-112); CO2 (CARBON DIOXIDE) 26 MMOL/L (24-34); CREATININE 1.01 MG/DL (0.55-1.02); GFR AFRICAN AMERICAN 58 ML/MIN (>=60); GFR NON AFRICAN AMERICAN 50 ML/MIN (>=60); PHOSPHORUS, SERUM 3.4 MG/DL (2.5-4.5); SODIUM, SERUM 136 MMOL/L (135-148)
[2017-04-02 02:58] LABS: GLUCOSE, SERUM 148 MG/DL (60-99)
[2017-04-02 03:26] LABS: HCO3 (ACTUAL BICARBONATE) 21.9 MEQ/L (23-27); HEMOBLOGIN CONTENT 12.8 G/DL (12-16); INSTRUMENT SERIAL # 35151; METHEMOGLOBIN 0.6 % (0-3); O2 CONTENT 17.6 VOL% (18-24); PCO2 (CO2 TENSION) 38 MMHG (35-45); PO2 (O2 TENSION) 109 MMHG (79-93); pH 7.37 (7.37-7.43)
[2017-04-02 03:27] LABS: MODE CMV; OPERATOR ID 13861; SAMPLE Arterial; TIDAL VOLUME 500 ML
[2017-04-02 08:54] LABS: HEMATOCRIT 35.7 % (36.0-48.0); HEMOGLOBIN 11.9 g/dL (12.0-16.0)
[2017-04-02 10:55] LABS: ASCORBIC ACID (UR NOT ORDER) NEG (NEG); BILIRUBIN, URINE NEGATIVE (NEG); KETONE, URINE NEGATIVE (NEG); LEUKOCYTE ESTERASE(NOT OR LARGE (NEG); WBC (NOT ORDERED) (RFLEX) > 182 (0-5)
[2017-04-02 14:15] LABS: HEMATOCRIT 33.9 % (36.0-48.0); HEMOGLOBIN 11.1 g/dL (12.0-16.0)
[2017-04-02 21:31] LABS: HEMATOCRIT 35.5 % (36.0-48.0); HEMOGLOBIN 11.3 g/dL (12.0-16.0)
[2017-04-03 04:07] LABS: BASOPHILS 0.1 %; BASOPHILS ABSOLUTE 0.01 10/3/uL (0.0-0.16); EOSINOPHILS 0.2 %; EOSINOPHILS ABSOLUTE 0.03 10/3/uL (0.0-0.53); HEMATOCRIT 32.9 % (36.0-48.0); HEMOGLOBIN 10.8 g/dL (12.0-16.0); IMMATURE GRANULOCYTES 0.4 %; IMMATURE GRANULOCYTES ABSOLUTE 0.05 10/3/uL (0.0-0.11); LYMPHOCYTES 7.6 %; LYMPHOCYTES ABSOLUTE 1.04 10/3/uL (0.67-4.30); MEAN CORPUS HGB CONC 32.8 g/dL (32.0-36.0); MEAN CORPUSCULAR HEMOGLOB 29.3 pg (26.0-34.0); MEAN CORPUSCULAR VOLUME 89.4 fL (80-100); MEAN PLATELET VOLUME 8.9 fL (9.2-13.0); MONOCYTES ABSOLUTE 0.83 10/3/uL (0.21-1.20); NEUTROPHILS 85.7 %; NEUTROPHILS ABSOLUTE 11.78 10/3/uL (2.02-8.40); PLATELET COUNT 600 10/3/uL (150-400); RBC DISTRIBUTION WIDTH 15.5 % (12.0-16.0); RED CELL COUNT 3.68 10/6/uL (4.0-5.6); WHITE BLOOD CELLS 13.7 10/3/uL (4.5-10.5)
[2017-04-03 04:15] LABS: MANUAL DIFF NO %
[2017-04-03 04:28] LABS: BUN (BLOOD UREA NITROGEN) 16 MG/DL (6-23); CALCIUM, SERUM 8.1 MG/DL (8.5-10.4); CHLORIDE, SERUM 102 MMOL/L (96-112); CO2 (CARBON DIOXIDE) 28 MMOL/L (24-34); CREATININE 0.96 MG/DL (0.55-1.02); GFR AFRICAN AMERICAN 61 ML/MIN (>=60); GFR NON AFRICAN AMERICAN 53 ML/MIN (>=60); PHOSPHORUS, SERUM 2.6 MG/DL (2.5-4.5); POTASSIUM, SERUM 3.9 MMOL/L (3.5-5.3); SGOT(AST) 23 U/L (5-40); SGPT(ALT) 26 U/L (5-65); SODIUM, SERUM 139 MMOL/L (135-148)
[2017-04-03 04:30] LABS: A/G RATIO 0.8 (0.7-1.9); ALBUMIN 2.6 G/DL (3.5-5.0); ALKALINE PHOSPHATASE 71 U/L (45-117); GLOBULIN 3.2 G/DL (2.5-4.1); GLUCOSE, SERUM 113 MG/DL (60-99); TOTAL BILIRUBIN 1.4 MG/DL (0-1.2); TOTAL PROTEIN 5.8 G/DL (6.0-8.5)
[2017-04-03 15:56] LABS: HEMATOCRIT 34.8 % (36.0-48.0); HEMOGLOBIN 11.3 g/dL (12.0-16.0)
[2017-04-04 03:48] LABS: BASOPHILS 0.1 %; BASOPHILS ABSOLUTE 0.02 10/3/uL (0.0-0.16); EOSINOPHILS 0.6 %; EOSINOPHILS ABSOLUTE 0.09 10/3/uL (0.0-0.53); HEMATOCRIT 33.9 % (36.0-48.0); HEMOGLOBIN 10.7 g/dL (12.0-16.0); IMMATURE GRANULOCYTES 0.4 %; IMMATURE GRANULOCYTES ABSOLUTE 0.06 10/3/uL (0.0-0.11); LYMPHOCYTES 9.6 %; LYMPHOCYTES ABSOLUTE 1.41 10/3/uL (0.67-4.30); MEAN CORPUS HGB CONC 31.6 g/dL (32.0-36.0); MEAN CORPUSCULAR HEMOGLOB 28.8 pg (26.0-34.0); MEAN CORPUSCULAR VOLUME 91.1 fL (80-100); MEAN PLATELET VOLUME 9.8 fL (9.2-13.0); MONOCYTES ABSOLUTE 1.03 10/3/uL (0.21-1.20); NEUTROPHILS 82.3 %; NEUTROPHILS ABSOLUTE 12.13 10/3/uL (2.02-8.40); PLATELET COUNT 698 10/3/uL (150-400); RBC DISTRIBUTION WIDTH 15.7 % (12.0-16.0); RED CELL COUNT 3.72 10/6/uL (4.0-5.6); WHITE BLOOD CELLS 14.7 10/3/uL (4.5-10.5)
[2017-04-04 03:54] LABS: MANUAL DIFF NO %
[2017-04-04 04:09] LABS: ALBUMIN 2.5 G/DL (3.5-5.0); BUN (BLOOD UREA NITROGEN) 20 MG/DL (6-23); CALCIUM, SERUM 8.5 MG/DL (8.5-10.4); CHLORIDE, SERUM 101 MMOL/L (96-112); CO2 (CARBON DIOXIDE) 28 MMOL/L (24-34); CREATININE 1.29 MG/DL (0.55-1.02); GFR AFRICAN AMERICAN 43 ML/MIN (>=60); GFR NON AFRICAN AMERICAN 37 ML/MIN (>=60); GLUCOSE, SERUM 100 MG/DL (60-99); PHOSPHORUS, SERUM 2.8 MG/DL (2.5-4.5); SODIUM, SERUM 136 MMOL/L (135-148)
[2017-04-04 17:13] LABS: HEMATOCRIT 36.1 % (36.0-48.0); HEMOGLOBIN 11.7 g/dL (12.0-16.0)
[2017-04-05 06:19] LABS: HEMATOCRIT 35.8 % (36.0-48.0); HEMOGLOBIN 11.8 g/dL (12.0-16.0)
[2017-04-05 07:56] LABS: A/G RATIO 0.7 (0.7-1.9); ALBUMIN 2.3 G/DL (3.5-5.0); ALKALINE PHOSPHATASE 74 U/L (45-117); CALCIUM, SERUM 8.6 MG/DL (8.5-10.4); CHLORIDE, SERUM 105 MMOL/L (96-112); CO2 (CARBON DIOXIDE) 26 MMOL/L (24-34); CREATININE 1.04 MG/DL (0.55-1.02); GFR AFRICAN AMERICAN 56 ML/MIN (>=60); GFR NON AFRICAN AMERICAN 48 ML/MIN (>=60); GLOBULIN 3.2 G/DL (2.5-4.1); GLUCOSE, SERUM 114 MG/DL (60-99); POTASSIUM, SERUM 4.3 MMOL/L (3.5-5.3); SGOT(AST) 18 U/L (5-40); SGPT(ALT) 20 U/L (5-65); SODIUM, SERUM 142 MMOL/L (135-148); TOTAL PROTEIN 5.5 G/DL (6.0-8.5)
[2017-04-05 07:57] LABS: BUN (BLOOD UREA NITROGEN) 29 MG/DL (6-23); PHOSPHORUS, SERUM 4.2 MG/DL (2.5-4.5); TOTAL BILIRUBIN 0.6 MG/DL (0-1.2)
[2017-04-05 08:38] LABS: BASOPHILS 0.2 %; BASOPHILS ABSOLUTE 0.03 10/3/uL (0.0-0.16); EOSINOPHILS 1.4 %; EOSINOPHILS ABSOLUTE 0.21 10/3/uL (0.0-0.53); HEMATOCRIT 34.6 % (36.0-48.0); HEMOGLOBIN 11.6 g/dL (12.0-16.0); IMMATURE GRANULOCYTES 0.8 %; IMMATURE GRANULOCYTES ABSOLUTE 0.12 10/3/uL (0.0-0.11); LYMPHOCYTES 17.5 %; LYMPHOCYTES ABSOLUTE 2.59 10/3/uL (0.67-4.30); MEAN CORPUSCULAR HEMOGLOB 29.4 pg (26.0-34.0); MEAN PLATELET VOLUME 9.4 fL (9.2-13.0); MONOCYTES 7.2 %; MONOCYTES ABSOLUTE 1.07 10/3/uL (0.21-1.20); NEUTROPHILS 72.9 %; NEUTROPHILS ABSOLUTE 10.78 10/3/uL (2.02-8.40); PLATELET COUNT 688 10/3/uL (150-400); RBC DISTRIBUTION WIDTH 15.7 % (12.0-16.0); RED CELL COUNT 3.95 10/6/uL (4.0-5.6); WHITE BLOOD CELLS 14.8 10/3/uL (4.5-10.5)
[2017-04-05 08:41] LABS: MANUAL DIFF NO %; MEAN CORPUS HGB CONC 33.5 g/dL (32.0-36.0); MEAN CORPUSCULAR VOLUME 87.6 fL (80-100)
[2017-04-06 07:07] LABS: BASOPHILS 0.2 %; BASOPHILS ABSOLUTE 0.02 10/3/uL (0.0-0.16); EOSINOPHILS 2.1 %; EOSINOPHILS ABSOLUTE 0.23 10/3/uL (0.0-0.53); HEMATOCRIT 34.2 % (36.0-48.0); HEMOGLOBIN 11.3 g/dL (12.0-16.0); IMMATURE GRANULOCYTES 1.1 %; IMMATURE GRANULOCYTES ABSOLUTE 0.12 10/3/uL (0.0-0.11); LYMPHOCYTES 8.4 %; LYMPHOCYTES ABSOLUTE 0.94 10/3/uL (0.67-4.30); MEAN CORPUSCULAR HEMOGLOB 29.7 pg (26.0-34.0); MEAN PLATELET VOLUME 9.2 fL (9.2-13.0); MONOCYTES 10.4 %; MONOCYTES ABSOLUTE 1.16 10/3/uL (0.21-1.20); NEUTROPHILS 77.8 %; PLATELET COUNT 677 10/3/uL (150-400); RBC DISTRIBUTION WIDTH 15.7 % (12.0-16.0); WHITE BLOOD CELLS 11.2 10/3/uL (4.5-10.5)
[2017-04-06 07:08] LABS: MANUAL DIFF NO %
[2017-04-06 07:19] LABS: BUN (BLOOD UREA NITROGEN) 25 MG/DL (6-23); CALCIUM, SERUM 8.5 MG/DL (8.5-10.4); CHLORIDE, SERUM 99 MMOL/L (96-112); CO2 (CARBON DIOXIDE) 29 MMOL/L (24-34); CREATININE 0.85 MG/DL (0.55-1.02); GFR AFRICAN AMERICAN 71 ML/MIN (>=60); GFR NON AFRICAN AMERICAN 61 ML/MIN (>=60); GLUCOSE, SERUM 113 MG/DL (60-99); POTASSIUM, SERUM 3.6 MMOL/L (3.5-5.3); SODIUM, SERUM 135 MMOL/L (135-148)
[2017-04-06 08:59] LABS: PROCALCITONIN 0.13 ng/mL (<0.5)
[2017-04-07 04:57] LABS: HEMATOCRIT 32.9 % (36.0-48.0); HEMOGLOBIN 10.6 g/dL (12.0-16.0); MEAN CORPUS HGB CONC 32.2 g/dL (32.0-36.0); MEAN CORPUSCULAR VOLUME 89.9 fL (80-100); MEAN PLATELET VOLUME 9.4 fL (9.2-13.0); PLATELET COUNT 600 10/3/uL (150-400); RBC DISTRIBUTION WIDTH 15.8 % (12.0-16.0); RED CELL COUNT 3.66 10/6/uL (4.0-5.6); WHITE BLOOD CELLS 9.9 10/3/uL (4.5-10.5)
[2017-04-07 04:58] LABS: MANUAL DIFF YES %
[2017-04-07 05:06] LABS: ALBUMIN 2.2 G/DL (3.5-5.0); BUN (BLOOD UREA NITROGEN) 22 MG/DL (6-23); CALCIUM, SERUM 8.6 MG/DL (8.5-10.4); CHLORIDE, SERUM 99 MMOL/L (96-112); CO2 (CARBON DIOXIDE) 27 MMOL/L (24-34); CREATININE 0.86 MG/DL (0.55-1.02); GFR AFRICAN AMERICAN 70 ML/MIN (>=60); GFR NON AFRICAN AMERICAN 60 ML/MIN (>=60); GLUCOSE, SERUM 111 MG/DL (60-99); POTASSIUM, SERUM 3.8 MMOL/L (3.5-5.3); SODIUM, SERUM 135 MMOL/L (135-148)
[2017-04-07 05:11] LABS: PHOSPHORUS, SERUM 3.1 MG/DL (2.5-4.5)
[2017-04-07 05:15] LABS: BAND NEUTROPHILS 2 %; LYMPHOCYTES 14 %; LYMPHOCYTES ABSOLUTE (CALC) 1.39 10/3/uL (0.67-4.30); METAMYELOCYTES 1 %; MONOCYTES 3 %; NEUTROPHILS ABSOLUTE (CALC) 8.12 10/3/uL (2.02-8.40); PLATELET ESTIMATE SLT INC (ADEQUATE); SEGMENTED NEUTROPHIL (0) 80 %; TOTAL NUCLEATED CELLS 100
[2017-04-07 05:16] LABS: RBC MORPHOLOGY NORM (NORMAL)
[2017-04-08 05:58] LABS: HEMATOCRIT 33.3 % (36.0-48.0); HEMOGLOBIN 10.9 g/dL (12.0-16.0); MEAN CORPUS HGB CONC 32.7 g/dL (32.0-36.0); MEAN CORPUSCULAR HEMOGLOB 29.5 pg (26.0-34.0); MEAN PLATELET VOLUME 9.4 fL (9.2-13.0); PLATELET COUNT 587 10/3/uL (150-400); RBC DISTRIBUTION WIDTH 15.8 % (12.0-16.0); WHITE BLOOD CELLS 11.2 10/3/uL (4.5-10.5)
[2017-04-08 06:00] LABS: MANUAL DIFF YES %
[2017-04-08 06:01] LABS: INTERNATIONAL NORMAL RATI 1.2 UNITS (-); PROTIME (NOT ORD) 15.1 SEC (12.0-14.5)
[2017-04-08 06:11] LABS: CALCIUM, SERUM 8.9 MG/DL (8.5-10.4); CHLORIDE, SERUM 100 MMOL/L (96-112); CO2 (CARBON DIOXIDE) 27 MMOL/L (24-34); CREATININE 0.79 MG/DL (0.55-1.02); GFR AFRICAN AMERICAN 77 ML/MIN (>=60); GFR NON AFRICAN AMERICAN 67 ML/MIN (>=60); GLUCOSE, SERUM 101 MG/DL (60-99); POTASSIUM, SERUM 3.8 MMOL/L (3.5-5.3); SODIUM, SERUM 136 MMOL/L (135-148)
[2017-04-08 06:12] LABS: BUN (BLOOD UREA NITROGEN) 18 MG/DL (6-23)
[2017-04-08 06:46] LABS: BAND NEUTROPHILS 3 %; BASOPHILS 1 %; BASOPHILS ABSOLUTE (CALC) 0.11 10/3/uL (0.0-0.16); EOSINOPHILS 1 %; EOSINOPHILS ABSOLUTE (CALC) 0.11 10/3/uL (0.0-0.53); IMMATURE GRANS ABSOLUTE (CALC) 0.34 10/3/uL (0.0-0.11); LYMPHOCYTES 5 %; LYMPHOCYTES ABSOLUTE (CALC) 0.56 10/3/uL (0.67-4.30); METAMYELOCYTES 1 %; MONOCYTES 6 %; MONOCYTES ABSOLUTE (CALC) 0.67 10/3/uL (0.21-1.20); MYELOCYTES 2 %; NEUTROPHILS ABSOLUTE (CALC) 9.41 10/3/uL (2.02-8.40); SEGMENTED NEUTROPHIL (0) 81 %; TOTAL NUCLEATED CELLS 100
[2017-04-08 06:47] LABS: PLATELET ESTIMATE SLT INC (ADEQUATE); RBC MORPHOLOGY NORM (NORMAL)
[2017-04-08 12:32] LABS: HEMATOCRIT 31.9 % (36.0-48.0); HEMOGLOBIN 10.4 g/dL (12.0-16.0)
[2017-04-08 20:07] LABS: HEMATOCRIT 33.1 % (36.0-48.0); HEMOGLOBIN 10.7 g/dL (12.0-16.0)
[2017-04-09 05:52] LABS: HEMATOCRIT 31.1 % (36.0-48.0); HEMOGLOBIN 10.3 g/dL (12.0-16.0); MEAN CORPUS HGB CONC 33.1 g/dL (32.0-36.0); MEAN CORPUSCULAR HEMOGLOB 29.9 pg (26.0-34.0); MEAN CORPUSCULAR VOLUME 90.1 fL (80-100); MEAN PLATELET VOLUME 9.3 fL (9.2-13.0); PLATELET COUNT 562 10/3/uL (150-400); RBC DISTRIBUTION WIDTH 15.7 % (12.0-16.0); RED CELL COUNT 3.45 10/6/uL (4.0-5.6); WHITE BLOOD CELLS 11.8 10/3/uL (4.5-10.5)
[2017-04-09 05:53] LABS: MANUAL DIFF YES %
[2017-04-09 06:09] LABS: BUN (BLOOD UREA NITROGEN) 17 MG/DL (6-23); CALCIUM, SERUM 8.7 MG/DL (8.5-10.4); CHLORIDE, SERUM 98 MMOL/L (96-112); CREATININE 0.87 MG/DL (0.55-1.02); GFR AFRICAN AMERICAN 69 ML/MIN (>=60); GFR NON AFRICAN AMERICAN 59 ML/MIN (>=60); GLUCOSE, SERUM 116 MG/DL (60-99); POTASSIUM, SERUM 3.9 MMOL/L (3.5-5.3); SODIUM, SERUM 136 MMOL/L (135-148)
[2017-04-09 06:10] LABS: CO2 (CARBON DIOXIDE) 32 MMOL/L (24-34)
[2017-04-09 06:21] LABS: BAND NEUTROPHILS 5 %; BASOPHILS 1 %; BASOPHILS ABSOLUTE (CALC) 0.12 10/3/uL (0.0-0.16); IMMATURE GRANS ABSOLUTE (CALC) 0.71 10/3/uL (0.0-0.11); LYMPHOCYTES 6 %; LYMPHOCYTES ABSOLUTE (CALC) 0.71 10/3/uL (0.67-4.30); METAMYELOCYTES 5 %; MONOCYTES 4 %; MONOCYTES ABSOLUTE (CALC) 0.47 10/3/uL (0.21-1.20); MYELOCYTES 1 %; NEUTROPHILS ABSOLUTE (CALC) 9.79 10/3/uL (2.02-8.40); PLATELET ESTIMATE SLT INC (ADEQUATE); SEGMENTED NEUTROPHIL (0) 78 %; TOTAL NUCLEATED CELLS 100
[2017-04-09 12:26] LABS: HEMATOCRIT 33.8 % (36.0-48.0); HEMOGLOBIN 10.9 g/dL (12.0-16.0)
[2017-04-09 20:29] LABS: HEMATOCRIT 35.9 % (36.0-48.0); HEMOGLOBIN 11.7 g/dL (12.0-16.0)
[2017-04-10 07:20] LABS: HEMATOCRIT 32.8 % (36.0-48.0); HEMOGLOBIN 10.4 g/dL (12.0-16.0)
[2017-04-10 07:28] LABS: BUN (BLOOD UREA NITROGEN) 20 MG/DL (6-23); CALCIUM, SERUM 8.4 MG/DL (8.5-10.4); CHLORIDE, SERUM 98 MMOL/L (96-112); CO2 (CARBON DIOXIDE) 34 MMOL/L (24-34); GFR AFRICAN AMERICAN 52 ML/MIN (>=60); GFR NON AFRICAN AMERICAN 45 ML/MIN (>=60); GLUCOSE, SERUM 125 MG/DL (60-99); SODIUM, SERUM 137 MMOL/L (135-148)
[2017-04-10 07:29] LABS: POTASSIUM, SERUM 4.7 MMOL/L (3.5-5.3)
[2017-04-11 06:37] LABS: HEMATOCRIT 32.3 % (36.0-48.0); HEMOGLOBIN 10.4 g/dL (12.0-16.0); MEAN CORPUS HGB CONC 32.2 g/dL (32.0-36.0); MEAN PLATELET VOLUME 9.3 fL (9.2-13.0); PLATELET COUNT 609 10/3/uL (150-400); RBC DISTRIBUTION WIDTH 15.6 % (12.0-16.0); RED CELL COUNT 3.59 10/6/uL (4.0-5.6); WHITE BLOOD CELLS 14.1 10/3/uL (4.5-10.5)
[2017-04-11 06:38] LABS: MANUAL DIFF YES %
[2017-04-11 06:39] LABS: CALCIUM, SERUM 8.5 MG/DL (8.5-10.4); CHLORIDE, SERUM 97 MMOL/L (96-112); CO2 (CARBON DIOXIDE) 30 MMOL/L (24-34); CREATININE 1.15 MG/DL (0.55-1.02); GFR AFRICAN AMERICAN 49 ML/MIN (>=60); GFR NON AFRICAN AMERICAN 42 ML/MIN (>=60); GLUCOSE, SERUM 116 MG/DL (60-99); POTASSIUM, SERUM 4.3 MMOL/L (3.5-5.3); SODIUM, SERUM 133 MMOL/L (135-148)
[2017-04-11 06:40] LABS: BUN (BLOOD UREA NITROGEN) 25 MG/DL (6-23)
[2017-04-11 07:09] LABS: BAND NEUTROPHILS 8 %; EOSINOPHILS 3 %; EOSINOPHILS ABSOLUTE (CALC) 0.42 10/3/uL (0.0-0.53); IMMATURE GRANS ABSOLUTE (CALC) 0.42 10/3/uL (0.0-0.11); LYMPHOCYTES 7 %; LYMPHOCYTES ABSOLUTE (CALC) 0.99 10/3/uL (0.67-4.30); METAMYELOCYTES 3 %; MONOCYTES 4 %; MONOCYTES ABSOLUTE (CALC) 0.56 10/3/uL (0.21-1.20); PLATELET ESTIMATE INC (ADEQUATE); SEGMENTED NEUTROPHIL (0) 75 %; TOTAL NUCLEATED CELLS 100
[2017-04-11 07:12] LABS: GIANT PLATELET FEW
[2017-04-11 07:16] LABS: RBC MORPHOLOGY NORM (NORMAL)
[2017-04-11 16:04] LABS: HEMOGLOBIN 11.4 g/dL (12.0-16.0)
[2017-04-11 19:35] LABS: ASCORBIC ACID (UR NOT ORDER) NEG (NEG); BILIRUBIN, URINE NEGATIVE (NEG); KETONE, URINE NEGATIVE (NEG); LEUKOCYTE ESTERASE(NOT OR TRACE (NEG); WBC (NOT ORDERED) (RFLEX) 7 (0-5)
[2017-04-12 05:08] LABS: HEMATOCRIT 33.5 % (36.0-48.0); MEAN CORPUS HGB CONC 32.8 g/dL (32.0-36.0); MEAN CORPUSCULAR HEMOGLOB 29.4 pg (26.0-34.0); MEAN CORPUSCULAR VOLUME 89.6 fL (80-100); MEAN PLATELET VOLUME 9.3 fL (9.2-13.0); PLATELET COUNT 677 10/3/uL (150-400); RBC DISTRIBUTION WIDTH 15.6 % (12.0-16.0); RED CELL COUNT 3.74 10/6/uL (4.0-5.6); WHITE BLOOD CELLS 16.1 10/3/uL (4.5-10.5)
[2017-04-12 05:09] LABS: MANUAL DIFF YES %
[2017-04-12 05:19] LABS: BUN (BLOOD UREA NITROGEN) 26 MG/DL (6-23); CALCIUM, SERUM 8.6 MG/DL (8.5-10.4); CHLORIDE, SERUM 95 MMOL/L (96-112); CO2 (CARBON DIOXIDE) 33 MMOL/L (24-34); CREATININE 1.07 MG/DL (0.55-1.02); GFR AFRICAN AMERICAN 54 ML/MIN (>=60); GFR NON AFRICAN AMERICAN 46 ML/MIN (>=60); GLUCOSE, SERUM 113 MG/DL (60-99); POTASSIUM, SERUM 4.4 MMOL/L (3.5-5.3); SODIUM, SERUM 132 MMOL/L (135-148)
[2017-04-12 05:38] LABS: BAND NEUTROPHILS 14 %; IMMATURE GRANS ABSOLUTE (CALC) 0.97 10/3/uL (0.0-0.11); LYMPHOCYTES 10 %; LYMPHOCYTES ABSOLUTE (CALC) 1.61 10/3/uL (0.67-4.30); METAMYELOCYTES 6 %; MONOCYTES 7 %; MONOCYTES ABSOLUTE (CALC) 1.13 10/3/uL (0.21-1.20); PLATELET ESTIMATE INC (ADEQUATE); SEGMENTED NEUTROPHIL (0) 63 %; TOTAL NUCLEATED CELLS 100
[2017-04-12 05:39] LABS: RBC MORPHOLOGY NORM (NORMAL)
[2017-04-12 16:14] LABS: HEMATOCRIT 31.3 % (36.0-48.0); HEMOGLOBIN 10.3 g/dL (12.0-16.0)
[2017-04-13 05:58] LABS: HEMATOCRIT 29.9 % (36.0-48.0); HEMOGLOBIN 9.8 g/dL (12.0-16.0); MEAN CORPUS HGB CONC 32.8 g/dL (32.0-36.0); MEAN CORPUSCULAR HEMOGLOB 29.3 pg (26.0-34.0); MEAN CORPUSCULAR VOLUME 89.3 fL (80-100); MEAN PLATELET VOLUME 9.2 fL (9.2-13.0); PLATELET COUNT 665 10/3/uL (150-400); RBC DISTRIBUTION WIDTH 15.7 % (12.0-16.0); RED CELL COUNT 3.35 10/6/uL (4.0-5.6); WHITE BLOOD CELLS 12.5 10/3/uL (4.5-10.5)
[2017-04-13 06:03] LABS: MANUAL DIFF YES %
[2017-04-13 06:13] LABS: BUN (BLOOD UREA NITROGEN) 24 MG/DL (6-23); CALCIUM, SERUM 8.3 MG/DL (8.5-10.4); CHLORIDE, SERUM 98 MMOL/L (96-112); CO2 (CARBON DIOXIDE) 30 MMOL/L (24-34); CREATININE 1.07 MG/DL (0.55-1.02); GFR AFRICAN AMERICAN 54 ML/MIN (>=60); GFR NON AFRICAN AMERICAN 46 ML/MIN (>=60); GLUCOSE, SERUM 122 MG/DL (60-99); POTASSIUM, SERUM 3.9 MMOL/L (3.5-5.3); SODIUM, SERUM 135 MMOL/L (135-148)
[2017-04-13 07:31] LABS: ANISOCYTOSIS 1+ (5-10/OIF) (0-5/OIF); BAND NEUTROPHILS 8 %; BASOPHILS 1 %; BASOPHILS ABSOLUTE (CALC) 0.13 10/3/uL (0.0-0.16); LYMPHOCYTES 6 %; LYMPHOCYTES ABSOLUTE (CALC) 0.75 10/3/uL (0.67-4.30); MONOCYTES 6 %; MONOCYTES ABSOLUTE (CALC) 0.75 10/3/uL (0.21-1.20); NEUTROPHILS ABSOLUTE (CALC) 10.88 10/3/uL (2.02-8.40); SEGMENTED NEUTROPHIL (0) 79 %; TOTAL NUCLEATED CELLS 100
[2017-04-13 16:10] LABS: HEMATOCRIT 31.6 % (36.0-48.0); HEMOGLOBIN 10.6 g/dL (12.0-16.0)
[2017-04-14 05:57] LABS: BASOPHILS 0.6 %; BASOPHILS ABSOLUTE 0.07 10/3/uL (0.0-0.16); EOSINOPHILS 2.1 %; EOSINOPHILS ABSOLUTE 0.25 10/3/uL (0.0-0.53); HEMATOCRIT 29.8 % (36.0-48.0); HEMOGLOBIN 9.9 g/dL (12.0-16.0); IMMATURE GRANULOCYTES ABSOLUTE 0.48 10/3/uL (0.0-0.11); LYMPHOCYTES 10.3 %; LYMPHOCYTES ABSOLUTE 1.25 10/3/uL (0.67-4.30); MEAN CORPUS HGB CONC 33.2 g/dL (32.0-36.0); MEAN CORPUSCULAR HEMOGLOB 29.6 pg (26.0-34.0); MEAN PLATELET VOLUME 9.3 fL (9.2-13.0); MONOCYTES 8.6 %; MONOCYTES ABSOLUTE 1.04 10/3/uL (0.21-1.20); NEUTROPHILS 74.4 %; NEUTROPHILS ABSOLUTE 9.05 10/3/uL (2.02-8.40); PLATELET COUNT 700 10/3/uL (150-400); RBC DISTRIBUTION WIDTH 15.7 % (12.0-16.0); RED CELL COUNT 3.35 10/6/uL (4.0-5.6); WHITE BLOOD CELLS 12.1 10/3/uL (4.5-10.5)
[2017-04-14 05:59] LABS: MANUAL DIFF NO %
[2017-04-14 06:14] LABS: BUN (BLOOD UREA NITROGEN) 20 MG/DL (6-23); CALCIUM, SERUM 8.9 MG/DL (8.5-10.4); CHLORIDE, SERUM 96 MMOL/L (96-112); CO2 (CARBON DIOXIDE) 31 MMOL/L (24-34); CREATININE 1.07 MG/DL (0.55-1.02); GFR AFRICAN AMERICAN 54 ML/MIN (>=60); GFR NON AFRICAN AMERICAN 46 ML/MIN (>=60); GLUCOSE, SERUM 108 MG/DL (60-99); SODIUM, SERUM 135 MMOL/L (135-148)
[2017-04-20] MEDS ORDERED: CARDCD180 PO (12:09)
[2017-04-20] MEDS ORDERED: FOLIC PO (12:10)
[2017-04-20] MEDS ORDERED: L20 PO ×2 (12:10→12:23)
[2017-04-20] MEDS ORDERED: MAGOX4 PO (12:11)
[2017-04-20] MEDS ORDERED: CLARIT10 PO (12:11)
[2017-04-20] MEDS ORDERED: TOPXL100 PO (12:12)
[2017-04-20] MEDS ORDERED: MULTIVIT/MIN PO (12:12)
[2017-04-20] MEDS ORDERED: PROTONIX PO (12:13)
[2017-04-20] MEDS ORDERED: MIRALAX POWDER1 PKT PO (12:13)
[2017-04-20] MEDS ORDERED: NORV5 PO (12:15)
[2017-04-20] MEDS ORDERED: APRES25 PO (12:15)
[2017-04-20] MEDS ORDERED: MELA3 PO (12:16)
[2017-04-20] MEDS ORDERED: LIPITOR20 PO (12:16)
[2017-04-20] MEDS ORDERED: CELEXA40 MG PO (12:17)
[2017-04-20] MEDS ORDERED: ALBUTEROL0.083 % INH (12:19)
[2017-04-20] MEDS ORDERED: ALBUTEROL5 INH (12:19)
[2017-04-20] MEDS ORDERED: NORCO1 TA1 PO (12:20)
[2017-04-20] MEDS ORDERED: ZOFRAN4 PO (12:21)
[2017-04-20] MEDS ORDERED: ACETSUP650 PR (12:22)
[2017-04-20] MEDS ORDERED: L80 PO (12:24)
[2017-04-20] MEDS ORDERED: Z5 PO (12:25)
[2017-04-20] MEDS ORDERED: ELIQUIS 2.5 MG2.5 MG PO (12:25)
[2017-04-24] MEDS ORDERED: COREG6 PO (13:56)
[2017-04-24] MEDS ORDERED: DEMA10T PO (14:08)
[2017-04-24] MEDS ORDERED: DUONEB INH (14:10)
[2017-04-24] MEDS ORDERED: KDUR20 PO (14:14)
== END 2017-04-14 15:15 | DRG 329 ==
LOC: ER 16:41 → 6NO 20:22 → CCU 04-01 21:01 → 2SO 04-04 10:56
PROVIDERS: Hospitalist; Internal Medicine; Internal Medicine Critical Care Medicine; Internal Medicine Gastroenterology; Specialist
PROC: 0DBN0ZZ Excision of Sigmoid Colon, Open Approach (ICD-10-PCS; 2017-04-01)
PROC: 5A1945Z Respiratory Ventilation, 24-96 Consecutive Hours (ICD-10-PCS; 2017-04-01)
PROC: 0BH17EZ Insertion of Endotracheal Airway into Trachea, Via Natural or Artificial Opening (ICD-10-PCS; 2017-04-01)
PROC: 0DJD8ZZ Inspection of Lower Intestinal Tract, Via Natural or Artificial Opening Endoscopic (ICD-10-PCS; principal; 2017-04-01 17:42)
DX: K92.2 Gastrointestinal hemorrhage, unspecified (principal); J95.821 Acute postprocedural respiratory failure; N17.9 Acute kidney failure, unspecified; D69.6 Thrombocytopenia, unspecified; I27.2 Other secondary pulmonary hypertension; N18.3 Chronic kidney disease, stage 3 (moderate); I50.32 Chronic diastolic (congestive) heart failure; I13.0 Hypertensive heart and chronic kidney disease with heart failure and stage 1 through stage 4 chronic kidney disease, or unspecified chronic kidney disease; K91.71 Accidental puncture and laceration of a digestive system organ or structure during a digestive system procedure; S36.533A Laceration of sigmoid colon, initial encounter; D62 Acute posthemorrhagic anemia; J98.11 Atelectasis; N39.0 Urinary tract infection, site not specified; J40 Bronchitis, not specified as acute or chronic; K57.30 Diverticulosis of large intestine without perforation or abscess without bleeding; I48.0 Paroxysmal atrial fibrillation; Z99.81 Dependence on supplemental oxygen; I71.6 Thoracoabdominal aortic aneurysm, without rupture; E78.5 Hyperlipidemia, unspecified; E66.9 Obesity, unspecified; M19.90 Unspecified osteoarthritis, unspecified site; F41.9 Anxiety disorder, unspecified; F32.9 Major depressive disorder, single episode, unspecified; K64.4 Residual hemorrhoidal skin tags; K76.0 Fatty (change of) liver, not elsewhere classified; N28.1 Cyst of kidney, acquired; Z98.890 Other specified postprocedural states; Z80.9 Family history of malignant neoplasm, unspecified; Y73.0 Diagnostic and monitoring gastroenterology and urology devices associated with adverse incidents; Y92.234 Operating room of hospital as the place of occurrence of the external cause; B96.5 Pseudomonas (aeruginosa) (mallei) (pseudomallei) as the cause of diseases classified elsewhere; B96.1 Klebsiella pneumoniae [K. pneumoniae] as the cause of diseases classified elsewhere
CPT/HCPCS: 31720; 36415; 36600; 71010; 71250; 74020; 74176; 75561; 80048; 80053; 80069; 81001; 82140; 82150; 82570; 82607; 82728; 82746; 82805; 82962; 83036; 83540; 83550; 83615; 83735; 83880; 83935; 84100; 84145; 84155; 84165; 84300; 84439; 84443; 84484; 85014; 85018; 85025; 85610; 85730; 86334; 86850; 86900; 86901; 87040; 87070; 87077; 87086; 87186; 87205; 87641; 93005; 93306; 94002; 94003; 94640; 94660; 94762; 94770; 97110-GO; 97110-GP; 97116-GP; 97162-GP; 97165-GO; 97530-GO; 97530-GP; 97535-GO; 99285; A9270-GY; A9577; C1751; C1769; C9113; J0282; J0360; J1170; J1940; J1956; J2250; J2543; J3010; J3475; P9045